=== PATIENT | male | born 1985 ===

== ENCOUNTER 2017-04-03 13:24 | Inpatient (IN) ==
[2017-04-03] MEDS ORDERED: DEXTROSE 50% 25 GM/50 ML VIAL IV PRN (13:25)
[2017-04-03] MEDS ORDERED: ONDANSETRON 4 MG/2 ML VIAL IV PRN (13:25)
[2017-04-03] MEDS ORDERED: GLUCAGON 1 MG VIAL IM PRN (13:25)
[2017-04-03] MEDS ORDERED: PIPERACILLIN/TAZOBACTAM 3,375 MG in SODIUM CHLORIDE 0.9% 100 ML IV SCH (13:30)
[2017-04-03] MEDS ORDERED: ACETAMINOPHEN 325 MG TABLET ONE (16:09)
[2017-04-03] MEDS ORDERED: ceFAZolin 2,000 MG in PREMIX 1 EACH IV ONE (16:19)
[2017-04-03] MEDS: ACETAMINOPHEN 325 MG TABLET PO PRN (16:20)
[2017-04-03] MEDS ORDERED: CHLORHEXIDINE 4% SOLN 118 ML BOTTLE TOP ONE (16:28)
[2017-04-03] MEDS: BACITRACIN OINT 0.9 GM PACK TOP SCH (18:03)
[2017-04-03] MEDS: SODIUM CHLORIDE 0.9% 1,000 ML IV SCH (18:03)
[2017-04-03] MEDS: PIPERACILLIN/TAZOBACTAM 3,375 MG in SODIUM CHLORIDE 0.9% 100 ML IV SCH (18:26)
[2017-04-03] MEDS ORDERED: INSULIN REGULAR 100 UNIT/ML ONE (18:29)
[2017-04-03] MEDS: INSULIN LISPRO 100 UNIT/ML SUBCUT SCH ×2 (18:33→21:19)
[2017-04-03] MEDS: HYDROmorphone 2 MG/1 ML VIAL IV PRN (19:18)
[2017-04-03] MEDS: GABAPENTIN 300 MG CAPSULE PO SCH (21:17)
[2017-04-03] MEDS: AMITRIPTYLINE 25 MG TABLET PO SCH (21:17)
[2017-04-03] MEDS: INSULIN GLARGINE 100 UNIT/ML SUBCUT SCH (21:20)
[2017-04-04] MEDS: PIPERACILLIN/TAZOBACTAM 3,375 MG in SODIUM CHLORIDE 0.9% 100 ML IV SCH ×3 (00:43→18:33)
[2017-04-04] MEDS ORDERED: ACETAMINOPHEN 325 MG TABLET ONE (00:49)
[2017-04-04] MEDS: ACETAMINOPHEN 325 MG TABLET PO PRN (00:50)
[2017-04-04 06:01] LABS: Basophils % 0.3 % (0.0-0.8); Eosinophils # 0.2 10*3/uL (0.0-0.87); Eosinophils % 1.6 % (0.00-10.9); Hematocrit 31.3 VOL% (42.0-52.0); Hemoglobin 10.9 GM/DL (14.0-18.0); Immature Granulocytes % 0.6 %; Immature Granulocytes Absolute 0.09 #; Lymphocytes # 1.4 10*3/uL (1.4-4.0); Lymphocytes % 9.9 % (21.2-54.2); Mean Corpuscular HGB Conc 34.8 GM/DL (32-36); Mean Corpuscular Hemoglobin 31 PG (27-34); Mean Corpuscular Volume 87.7 FL (87-102); Mean Platelet Volume 8.8 FL (9.6-12.0); Monocytes # 1.3 10*3/uL (0.11-0.8); Monocytes % 8.8 % (1.7-12.7); Neutrophils # 11.2 10*3/uL (1.4-7.4); Neutrophils % 78.8 % (38.7-73.9); Platelet Count 260 T/CUMM (130-400); Red Blood Count 3.57 MC/CUMM (3.8-5.5); Red Cell Distribution Width 12.1 % (9.3-17.3); White Blood Count 14.2 T/CUMM (4-12)
[2017-04-04 06:32] LABS: Albumin 2.2 G/DL (3.4-5.0); Bilirubin,Total 1.4 MG/DL (0.2-1.0); Calcium 7.6 MG/DL (8.5-10.1); Osmolality,Calculated 272.5 MOS/KG (273-304); Potassium 4.4 MMOL/L (3.5-5.1); Total Protein 5.8 G/DL (6.4-8.3)
[2017-04-04] MEDS ORDERED: DIAZEPAM 5 MG TABLET PO ONE (07:00)
[2017-04-04] MEDS ORDERED: ceFAZolin 2,000 MG in PREMIX 1 EACH IV ONE (07:00)
[2017-04-04] MEDS ORDERED: FAMOTIDINE 20 MG TABLET PO ONE (07:00)
[2017-04-04] MEDS ORDERED: BUPIVACAINE 0.25% 50 ML VIAL ONE (08:12)
[2017-04-04] MEDS: INSULIN LISPRO 100 UNIT/ML SUBCUT SCH ×4 (09:00→21:10)
[2017-04-04] MEDS ORDERED: GENTAMICIN 0.1% CREAM 15 GM TUBE TOP ONE (09:21)
[2017-04-04] MEDS ORDERED: ONDANSETRON 4 MG/2 ML VIAL IV PRN ×2 (09:50→10:07)
[2017-04-04] MEDS ORDERED: CLINDAMYCIN INJ 600 MG in PREMIX 1 EACH IV SCH (10:00)
[2017-04-04] MEDS ORDERED: metroNIDAZOLE INJ 500 MG in PREMIX 1 EACH IV SCH (10:00)
[2017-04-04] MEDS ORDERED: HYDROmorphone 2 MG/1 ML VIAL IV PRN (10:07)
[2017-04-04] MEDS ORDERED: PROPOFOL 200 MG/20 ML VIAL IV ONE (10:17)
[2017-04-04] MEDS ORDERED: SEVOFLURANE 1 UNIT/15 MINUTE INH ONE (10:18)
[2017-04-04] MEDS ORDERED: MIDAZOLAM 2 MG/2 ML VIAL ONE (10:18)
[2017-04-04] MEDS ORDERED: fentaNYL 100 MCG/2 ML VIAL ONE (10:18)
[2017-04-04] MEDS ORDERED: KETOROLAC 30 MG/1 ML VIAL ONE (10:19)
[2017-04-04] MEDS ORDERED: ONDANSETRON 4 MG/2 ML VIAL ONE (10:19)
[2017-04-04] MEDS ORDERED: LACTATED RINGERS 1,000 ML IV SCH (10:30)
[2017-04-04] MEDS: BACITRACIN OINT 0.9 GM PACK TOP SCH (11:25)
[2017-04-04] MEDS: glyBURIDE 5 MG TABLET PO SCH (11:26)
[2017-04-04] MEDS: GABAPENTIN 300 MG CAPSULE PO SCH ×3 (11:27→21:08)
[2017-04-04] MEDS: hydroCHLOROthiazide 12.5 MG CAPSULE PO SCH (11:27)
[2017-04-04] MEDS: PANTOPRAZOLE 40 MG TABLET PO SCH (11:28)
[2017-04-04] MEDS: PRAVASTATIN 20 MG TABLET PO SCH (11:28)
[2017-04-04] MEDS: MONTELUKAST 10 MG TABLET PO SCH (11:29)
[2017-04-04] MEDS: SODIUM CHLORIDE 0.9% 1,000 ML IV SCH ×4 (11:29→18:31)
[2017-04-04] MEDS: HYDROmorphone 2 MG/1 ML VIAL IV PRN ×3 (12:17→21:10)
[2017-04-04] MEDS: VANCOMYCIN INJ 1,000 MG in SODIUM CHLORIDE 0.9% 250 ML IV SCH ×2 (12:50→23:25)
[2017-04-04] MEDS: ceFAZolin 2,000 MG in PREMIX 1 EACH IV SCH (16:02)
[2017-04-04] MEDS: INSULIN GLARGINE 100 UNIT/ML SUBCUT SCH (21:09)
[2017-04-04] MEDS: AMITRIPTYLINE 25 MG TABLET PO SCH (21:09)
[2017-04-05] MEDS: HYDROmorphone 2 MG/1 ML VIAL IV PRN ×5 (00:51→21:25)
[2017-04-05] MEDS: ceFAZolin 2,000 MG in PREMIX 1 EACH IV SCH (01:29)
[2017-04-05] MEDS: SODIUM CHLORIDE 0.9% 1,000 ML IV SCH ×3 (01:40→18:28)
[2017-04-05] MEDS: PIPERACILLIN/TAZOBACTAM 3,375 MG in SODIUM CHLORIDE 0.9% 100 ML IV SCH ×3 (02:26→17:26)
[2017-04-05] MEDS: ENOXAPARIN 40 MG/0.4 ML SYRINGE SUBCUT SCH (05:02)
[2017-04-05 05:16] LABS: Basophils % 0.3 % (0.0-0.8); Eosinophils # 0.3 10*3/uL (0.0-0.87); Eosinophils % 3.1 % (0.00-10.9); Hematocrit 28.6 VOL% (42.0-52.0); Hemoglobin 9.9 GM/DL (14.0-18.0); Immature Granulocytes % 0.4 %; Immature Granulocytes Absolute 0.04 #; Lymphocytes # 1.9 10*3/uL (1.4-4.0); Lymphocytes % 17.3 % (21.2-54.2); Mean Corpuscular HGB Conc 34.6 GM/DL (32-36); Mean Corpuscular Hemoglobin 31 PG (27-34); Mean Platelet Volume 8.6 FL (9.6-12.0); Monocytes # 1.1 10*3/uL (0.11-0.8); Monocytes % 9.8 % (1.7-12.7); Neutrophils # 7.5 10*3/uL (1.4-7.4); Neutrophils % 69.1 % (38.7-73.9); Platelet Count 241 T/CUMM (130-400); Red Blood Count 3.25 MC/CUMM (3.8-5.5); White Blood Count 10.9 T/CUMM (4-12)
[2017-04-05 05:54] LABS: Bilirubin,Total 0.6 MG/DL (0.2-1.0); Calcium 7.5 MG/DL (8.5-10.1); Osmolality,Calculated 269.1 MOS/KG (273-304); Potassium 4.1 MMOL/L (3.5-5.1); Total Protein 5.5 G/DL (6.4-8.3)
[2017-04-05] MEDS: VANCOMYCIN INJ 1,000 MG in SODIUM CHLORIDE 0.9% 250 ML IV SCH ×3 (06:29→23:27)
[2017-04-05] MEDS: INSULIN LISPRO 100 UNIT/ML SUBCUT SCH ×4 (09:46→21:29)
[2017-04-05] MEDS: hydroCHLOROthiazide 12.5 MG CAPSULE PO SCH (09:47)
[2017-04-05] MEDS: MONTELUKAST 10 MG TABLET PO SCH (09:47)
[2017-04-05] MEDS: PANTOPRAZOLE 40 MG TABLET PO SCH (09:48)
[2017-04-05] MEDS: PRAVASTATIN 20 MG TABLET PO SCH (09:48)
[2017-04-05] MEDS: GABAPENTIN 300 MG CAPSULE PO SCH ×3 (09:48→21:27)
[2017-04-05] MEDS: glyBURIDE 5 MG TABLET PO SCH (09:52)
[2017-04-05] MEDS: BACITRACIN OINT 0.9 GM PACK TOP SCH (09:53)
[2017-04-05] MEDS ORDERED: ACETAMINOPHEN 325 MG TABLET PO PRN (14:42)
[2017-04-05] MEDS: INSULIN GLARGINE 100 UNIT/ML SUBCUT SCH (21:23)
[2017-04-05] MEDS: AMITRIPTYLINE 25 MG TABLET PO SCH (21:27)
[2017-04-06] MEDS: HYDROmorphone 2 MG/1 ML VIAL IV PRN ×6 (00:14→20:58)
[2017-04-06] MEDS: SODIUM CHLORIDE 0.9% 1,000 ML IV SCH ×3 (01:20→17:51)
[2017-04-06] MEDS: PIPERACILLIN/TAZOBACTAM 3,375 MG in SODIUM CHLORIDE 0.9% 100 ML IV SCH ×3 (02:05→17:43)
[2017-04-06 04:03] LABS: Basophils % 0.3 % (0.0-0.8); Eosinophils # 0.5 10*3/uL (0.0-0.87); Eosinophils % 5.4 % (0.00-10.9); Hematocrit 30.9 VOL% (42.0-52.0); Hemoglobin 10.7 GM/DL (14.0-18.0); Immature Granulocytes % 0.6 %; Immature Granulocytes Absolute 0.05 #; Lymphocytes % 22.5 % (21.2-54.2); Mean Corpuscular HGB Conc 34.6 GM/DL (32-36); Mean Corpuscular Hemoglobin 31 PG (27-34); Mean Corpuscular Volume 88.8 FL (87-102); Mean Platelet Volume 8.5 FL (9.6-12.0); Monocytes # 0.7 10*3/uL (0.11-0.8); Monocytes % 8.3 % (1.7-12.7); Neutrophils # 5.6 10*3/uL (1.4-7.4); Neutrophils % 62.9 % (38.7-73.9); Platelet Count 282 T/CUMM (130-400); Red Blood Count 3.48 MC/CUMM (3.8-5.5); Red Cell Distribution Width 12.2 % (9.3-17.3); White Blood Count 8.9 T/CUMM (4-12)
[2017-04-06 04:33] LABS: Calcium 7.9 MG/DL (8.5-10.1); Osmolality,Calculated 273.7 MOS/KG (273-304); Potassium 4.5 MMOL/L (3.5-5.1)
[2017-04-06] MEDS: ENOXAPARIN 40 MG/0.4 ML SYRINGE SUBCUT SCH (04:49)
[2017-04-06] MEDS: VANCOMYCIN INJ 1,000 MG in SODIUM CHLORIDE 0.9% 250 ML IV SCH ×3 (06:20→22:51)
[2017-04-06] MEDS: INSULIN LISPRO 100 UNIT/ML SUBCUT SCH ×4 (08:15→20:57)
[2017-04-06] MEDS: PRAVASTATIN 20 MG TABLET PO SCH (08:58)
[2017-04-06] MEDS: GABAPENTIN 300 MG CAPSULE PO SCH ×3 (08:58→20:56)
[2017-04-06] MEDS: PANTOPRAZOLE 40 MG TABLET PO SCH (08:58)
[2017-04-06] MEDS: BACITRACIN OINT 0.9 GM PACK TOP SCH (08:58)
[2017-04-06] MEDS: glyBURIDE 5 MG TABLET PO SCH (08:58)
[2017-04-06] MEDS: hydroCHLOROthiazide 12.5 MG CAPSULE PO SCH (08:58)
[2017-04-06] MEDS: MONTELUKAST 10 MG TABLET PO SCH (08:58)
[2017-04-06] MEDS: SODIUM HYPOCHLORITE 0.25% IRRIG 473 ML BOTTLE TOP SCH (13:36)
[2017-04-06] MEDS: GENTAMICIN 0.1% CREAM 15 GM TUBE TOP SCH (13:36)
[2017-04-06] MEDS: SKIN HEALING OINT (AQUAPHOR) 50 GM TUBE TOP PRN (13:41)
[2017-04-06] MEDS: AMITRIPTYLINE 25 MG TABLET PO SCH (20:56)
[2017-04-06] MEDS: INSULIN GLARGINE 100 UNIT/ML SUBCUT SCH (20:57)
[2017-04-07] MEDS: SODIUM CHLORIDE 0.9% 1,000 ML IV SCH ×3 (01:19→21:44)
[2017-04-07] MEDS: PIPERACILLIN/TAZOBACTAM 3,375 MG in SODIUM CHLORIDE 0.9% 100 ML IV SCH ×2 (01:55→14:15)
[2017-04-07] MEDS: ENOXAPARIN 40 MG/0.4 ML SYRINGE SUBCUT SCH (05:02)
[2017-04-07 05:24] LABS: Basophils % 0.4 % (0.0-0.8); Eosinophils # 0.5 10*3/uL (0.0-0.87); Eosinophils % 5.7 % (0.00-10.9); Hematocrit 32.2 VOL% (42.0-52.0); Immature Granulocytes % 0.3 %; Immature Granulocytes Absolute 0.03 #; Lymphocytes # 1.7 10*3/uL (1.4-4.0); Lymphocytes % 18.6 % (21.2-54.2); Mean Corpuscular HGB Conc 34.2 GM/DL (32-36); Mean Corpuscular Hemoglobin 30 PG (27-34); Mean Corpuscular Volume 88.5 FL (87-102); Mean Platelet Volume 8.4 FL (9.6-12.0); Monocytes # 0.9 10*3/uL (0.11-0.8); Monocytes % 10.1 % (1.7-12.7); Neutrophils # 6.1 10*3/uL (1.4-7.4); Neutrophils % 64.9 % (38.7-73.9); Platelet Count 294 T/CUMM (130-400); Red Blood Count 3.64 MC/CUMM (3.8-5.5); Red Cell Distribution Width 11.9 % (9.3-17.3); White Blood Count 9.3 T/CUMM (4-12)
[2017-04-07] MEDS: HYDROmorphone 2 MG/1 ML VIAL IV PRN ×3 (05:36→18:17)
[2017-04-07 05:51] LABS: Calcium 8.3 MG/DL (8.5-10.1); Osmolality,Calculated 273.8 MOS/KG (273-304); Potassium 4.6 MMOL/L (3.5-5.1)
[2017-04-07] MEDS: VANCOMYCIN INJ 1,000 MG in SODIUM CHLORIDE 0.9% 250 ML IV SCH ×3 (06:18→21:35)
[2017-04-07 06:39] LABS: Eosinophils 6 % (0-10); Lymphocytes 14 % (20-55); Segmented Neutrophils 71 % (50-85); Total Cells Counted 100
[2017-04-07 06:40] LABS: Hypochromasia 1+; Microcytosis 1+
[2017-04-07 06:41] LABS: Platelet Estimate Normal
[2017-04-07] MEDS: INSULIN LISPRO 100 UNIT/ML SUBCUT SCH ×4 (08:37→21:20)
[2017-04-07] MEDS: CIPROFLOXACIN 500 MG TABLET PO SCH ×2 (08:38→21:19)
[2017-04-07] MEDS: glyBURIDE 5 MG TABLET PO SCH (08:39)
[2017-04-07] MEDS: GABAPENTIN 300 MG CAPSULE PO SCH ×3 (08:39→21:19)
[2017-04-07] MEDS: PANTOPRAZOLE 40 MG TABLET PO SCH (08:39)
[2017-04-07] MEDS: MONTELUKAST 10 MG TABLET PO SCH (08:39)
[2017-04-07] MEDS: PRAVASTATIN 20 MG TABLET PO SCH (08:39)
[2017-04-07] MEDS: hydroCHLOROthiazide 12.5 MG CAPSULE PO SCH (08:39)
[2017-04-07] MEDS ORDERED: GENTAMICIN 0.1% CREAM 15 GM TUBE TOP SCH (09:00)
[2017-04-07] MEDS: GENTAMICIN 0.1% CREAM 15 GM TUBE TOP SCH (11:48)
[2017-04-07] MEDS: SKIN HEALING OINT (AQUAPHOR) 50 GM TUBE TOP PRN (11:48)
[2017-04-07] MEDS: SODIUM HYPOCHLORITE 0.25% IRRIG 473 ML BOTTLE TOP SCH (11:48)
[2017-04-07] MEDS: INSULIN GLARGINE 100 UNIT/ML SUBCUT SCH ×2 (21:19→21:22)
[2017-04-07] MEDS: AMITRIPTYLINE 25 MG TABLET PO SCH (21:19)
[2017-04-08] MEDS: PIPERACILLIN/TAZOBACTAM 3,375 MG in SODIUM CHLORIDE 0.9% 100 ML IV SCH ×3 (00:01→16:11)
[2017-04-08] MEDS: SODIUM CHLORIDE 0.9% 1,000 ML IV SCH ×3 (02:30→18:47)
[2017-04-08] MEDS: ENOXAPARIN 40 MG/0.4 ML SYRINGE SUBCUT SCH (03:25)
[2017-04-08] MEDS: VANCOMYCIN INJ 1,000 MG in SODIUM CHLORIDE 0.9% 250 ML IV SCH ×2 (05:34→13:46)
[2017-04-08] MEDS: INSULIN LISPRO 100 UNIT/ML SUBCUT SCH ×4 (08:53→21:07)
[2017-04-08] MEDS: hydroCHLOROthiazide 12.5 MG CAPSULE PO SCH (08:53)
[2017-04-08] MEDS: MONTELUKAST 10 MG TABLET PO SCH (08:53)
[2017-04-08] MEDS: PRAVASTATIN 20 MG TABLET PO SCH (08:53)
[2017-04-08] MEDS: PANTOPRAZOLE 40 MG TABLET PO SCH (08:54)
[2017-04-08] MEDS: CIPROFLOXACIN 500 MG TABLET PO SCH (08:54)
[2017-04-08] MEDS: glyBURIDE 5 MG TABLET PO SCH (08:54)
[2017-04-08] MEDS: GABAPENTIN 300 MG CAPSULE PO SCH ×3 (08:54→21:06)
[2017-04-08] MEDS: HYDROmorphone 2 MG/1 ML VIAL IV PRN ×3 (08:59→21:07)
[2017-04-08] MEDS: SODIUM HYPOCHLORITE 0.25% IRRIG 473 ML BOTTLE TOP SCH (09:00)
[2017-04-08] MEDS: GENTAMICIN 0.1% CREAM 15 GM TUBE TOP SCH (09:00)
[2017-04-08 09:25] LABS: Basophils % 0.3 % (0.0-0.8); Eosinophils # 0.4 10*3/uL (0.0-0.87); Eosinophils % 4.2 % (0.00-10.9); Hematocrit 37.7 VOL% (42.0-52.0); Hemoglobin 12.6 GM/DL (14.0-18.0); Immature Granulocytes % 0.7 %; Immature Granulocytes Absolute 0.07 #; Lymphocytes # 1.4 10*3/uL (1.4-4.0); Lymphocytes % 14.5 % (21.2-54.2); Mean Corpuscular HGB Conc 33.4 GM/DL (32-36); Mean Corpuscular Hemoglobin 30 PG (27-34); Mean Corpuscular Volume 90.6 FL (87-102); Mean Platelet Volume 8.3 FL (9.6-12.0); Monocytes # 0.6 10*3/uL (0.11-0.8); Monocytes % 6.5 % (1.7-12.7); Neutrophils # 7.2 10*3/uL (1.4-7.4); Neutrophils % 73.8 % (38.7-73.9); Platelet Count 324 T/CUMM (130-400); Red Blood Count 4.16 MC/CUMM (3.8-5.5); Red Cell Distribution Width 12.1 % (9.3-17.3); White Blood Count 9.8 T/CUMM (4-12)
[2017-04-08 09:56] LABS: Alanine Aminotransferase 31 U/L (16-61); Albumin 2.5 G/DL (3.4-5.0); Alkaline Phosphatase 185 U/L (45-117); Aspartate Amino Transferase 25 U/L (0-37); Bilirubin,Total < 0.39 MG/DL (0.2-1.0); Blood Urea Nitrogen 16 MG/DL (7-18); Calcium 8.5 MG/DL (8.5-10.1); Glucose 217 MG/DL (74-106); Osmolality,Calculated 282.7 MOS/KG (273-304); Potassium 4.5 MMOL/L (3.5-5.1); Sodium 138 MMOL/L (136-145); Total Protein 6.7 G/DL (6.4-8.3)
[2017-04-08] MEDS: AMITRIPTYLINE 25 MG TABLET PO SCH (21:07)
[2017-04-08] MEDS: INSULIN GLARGINE 100 UNIT/ML SUBCUT SCH (21:07)
[2017-04-08] MEDS: AMPICILLIN/SULBACTAM 3,000 MG in SODIUM CHLORIDE 0.9% 100 ML IV SCH (23:00)
[2017-04-09] MEDS: ENOXAPARIN 40 MG/0.4 ML SYRINGE SUBCUT SCH (03:12)
[2017-04-09] MEDS: AMPICILLIN/SULBACTAM 3,000 MG in SODIUM CHLORIDE 0.9% 100 ML IV SCH ×4 (05:43→23:59)
[2017-04-09] MEDS: SODIUM CHLORIDE 0.9% 1,000 ML IV SCH ×5 (07:37→22:18)
[2017-04-09] MEDS: INSULIN LISPRO 100 UNIT/ML SUBCUT SCH ×4 (07:49→21:19)
[2017-04-09] MEDS: glyBURIDE 5 MG TABLET PO SCH (08:15)
[2017-04-09] MEDS: hydroCHLOROthiazide 12.5 MG CAPSULE PO SCH (08:15)
[2017-04-09] MEDS: GABAPENTIN 300 MG CAPSULE PO SCH ×3 (08:15→21:18)
[2017-04-09] MEDS: GENTAMICIN 0.1% CREAM 15 GM TUBE TOP SCH (08:15)
[2017-04-09] MEDS: SODIUM HYPOCHLORITE 0.25% IRRIG 473 ML BOTTLE TOP SCH (08:15)
[2017-04-09] MEDS: PANTOPRAZOLE 40 MG TABLET PO SCH (08:16)
[2017-04-09] MEDS: MONTELUKAST 10 MG TABLET PO SCH (08:16)
[2017-04-09] MEDS: PRAVASTATIN 20 MG TABLET PO SCH (08:16)
[2017-04-09] MEDS ORDERED: BUPIVACAINE 0.25% 50 ML VIAL ONE (10:54)
[2017-04-09] MEDS: LACTATED RINGERS 1,000 ML IV SCH ×2 (11:10→13:24)
[2017-04-09] MEDS ORDERED: GENTAMICIN 0.1% CREAM 15 GM TUBE TOP ONE (11:13)
[2017-04-09] MEDS ORDERED: AMPICILLIN/SULBACTAM 3,000 MG VIAL ONE (11:32)
[2017-04-09] MEDS ORDERED: fentaNYL 100 MCG/2 ML VIAL ONE (12:36)
[2017-04-09] MEDS ORDERED: PROPOFOL 200 MG/20 ML VIAL IV ONE (12:36)
[2017-04-09] MEDS ORDERED: LACTATED RINGERS 1,000 ML IV ONE (12:36)
[2017-04-09] MEDS ORDERED: MIDAZOLAM 2 MG/2 ML VIAL ONE (12:36)
[2017-04-09] MEDS ORDERED: SEVOFLURANE 1 UNIT/15 MINUTE INH ONE (12:36)
[2017-04-09] MEDS ORDERED: ONDANSETRON 4 MG/2 ML VIAL IV PRN (13:00)
[2017-04-09] MEDS: HYDROmorphone 2 MG/1 ML VIAL IV PRN ×4 (13:00→23:58)
[2017-04-09] MEDS ORDERED: HYDROmorphone 2 MG/1 ML VIAL ONE (13:02)
[2017-04-09] MEDS ORDERED: ONDANSETRON 4 MG/2 ML VIAL ONE (13:02)
[2017-04-09] MEDS: INSULIN GLARGINE 100 UNIT/ML SUBCUT SCH (21:19)
[2017-04-09] MEDS: AMITRIPTYLINE 25 MG TABLET PO SCH (21:19)
[2017-04-10] MEDS: AMPICILLIN/SULBACTAM 3,000 MG in SODIUM CHLORIDE 0.9% 100 ML IV SCH ×4 (04:53→22:18)
[2017-04-10] MEDS: ENOXAPARIN 40 MG/0.4 ML SYRINGE SUBCUT SCH (04:53)
[2017-04-10 05:33] LABS: Basophils % 0.5 % (0.0-0.8); Eosinophils # 0.4 10*3/uL (0.0-0.87); Eosinophils % 4.1 % (0.00-10.9); Hematocrit 31.9 VOL% (42.0-52.0); Hemoglobin 10.9 GM/DL (14.0-18.0); Immature Granulocytes % 0.5 %; Immature Granulocytes Absolute 0.04 #; Lymphocytes % 23.4 % (21.2-54.2); Mean Corpuscular HGB Conc 34.2 GM/DL (32-36); Mean Corpuscular Hemoglobin 30 PG (27-34); Mean Corpuscular Volume 88.9 FL (87-102); Mean Platelet Volume 8.3 FL (9.6-12.0); Monocytes # 0.9 10*3/uL (0.11-0.8); Monocytes % 10.5 % (1.7-12.7); Neutrophils # 5.3 10*3/uL (1.4-7.4); Platelet Count 303 T/CUMM (130-400); Red Blood Count 3.59 MC/CUMM (3.8-5.5); Red Cell Distribution Width 12.1 % (9.3-17.3); White Blood Count 8.7 T/CUMM (4-12)
[2017-04-10 06:07] LABS: Calcium 8.2 MG/DL (8.5-10.1); Osmolality,Calculated 277.5 MOS/KG (273-304); Potassium 4.4 MMOL/L (3.5-5.1)
[2017-04-10] MEDS: INSULIN LISPRO 100 UNIT/ML SUBCUT SCH ×4 (07:22→20:54)
[2017-04-10] MEDS: SODIUM CHLORIDE 0.9% 1,000 ML IV SCH ×4 (07:22→22:15)
[2017-04-10] MEDS: PANTOPRAZOLE 40 MG TABLET PO SCH (08:22)
[2017-04-10] MEDS: GABAPENTIN 300 MG CAPSULE PO SCH ×3 (08:22→20:54)
[2017-04-10] MEDS: glyBURIDE 5 MG TABLET PO SCH (08:22)
[2017-04-10] MEDS: PRAVASTATIN 20 MG TABLET PO SCH (08:22)
[2017-04-10] MEDS: MONTELUKAST 10 MG TABLET PO SCH (08:22)
[2017-04-10] MEDS: hydroCHLOROthiazide 12.5 MG CAPSULE PO SCH (08:22)
[2017-04-10] MEDS: SODIUM HYPOCHLORITE 0.25% IRRIG 473 ML BOTTLE TOP SCH (08:55)
[2017-04-10] MEDS: GENTAMICIN 0.1% CREAM 15 GM TUBE TOP SCH (08:56)
[2017-04-10] MEDS ORDERED: CHOLECALCIFEROL 5,000 UNIT TABLET PO SCH (09:00)
[2017-04-10] MEDS: HYDROmorphone 2 MG/1 ML VIAL IV PRN ×4 (09:40→22:14)
[2017-04-10] MEDS: INSULIN GLARGINE 100 UNIT/ML SUBCUT SCH (20:54)
[2017-04-10] MEDS: AMITRIPTYLINE 25 MG TABLET PO SCH (20:54)
[2017-04-11] MEDS: ENOXAPARIN 40 MG/0.4 ML SYRINGE SUBCUT SCH (04:54)
[2017-04-11] MEDS: AMPICILLIN/SULBACTAM 3,000 MG in SODIUM CHLORIDE 0.9% 100 ML IV SCH ×2 (04:54→11:47)
[2017-04-11] MEDS: INSULIN LISPRO 100 UNIT/ML SUBCUT SCH ×2 (08:50→11:47)
[2017-04-11] MEDS: hydroCHLOROthiazide 12.5 MG CAPSULE PO SCH (08:52)
[2017-04-11] MEDS: glyBURIDE 5 MG TABLET PO SCH (08:52)
[2017-04-11] MEDS: PRAVASTATIN 20 MG TABLET PO SCH (08:52)
[2017-04-11] MEDS: GABAPENTIN 300 MG CAPSULE PO SCH ×2 (08:52→15:10)
[2017-04-11] MEDS: PANTOPRAZOLE 40 MG TABLET PO SCH (08:53)
[2017-04-11] MEDS: MONTELUKAST 10 MG TABLET PO SCH (08:53)
[2017-04-11] MEDS: SKIN HEALING OINT (AQUAPHOR) 50 GM TUBE TOP PRN (10:15)
[2017-04-11] MEDS: SODIUM HYPOCHLORITE 0.25% IRRIG 473 ML BOTTLE TOP SCH (10:15)
[2017-04-11] MEDS: GENTAMICIN 0.1% CREAM 15 GM TUBE TOP SCH (10:15)
[2017-04-11 11:06] VITALS: BP 139/87
== END 2017-04-11 15:17 | disposition home or self-care (01) | DRG 623 ==
LOC: N.3E
PROVIDERS: ADMIT Specialist; ATTEND Specialist

== ENCOUNTER 2017-07-30 05:57 | Inpatient (IN) ==
[2017-07-28 15:41] LABS: Basophils % 0.7 % (0.0-0.8); Eosinophils # 0.4 10*3/uL (0.0-0.87); Eosinophils % 7.5 % (0.00-10.9); Hematocrit 34.2 VOL% (42.0-52.0); Hemoglobin 11.9 GM/DL (14.0-18.0); Immature Granulocytes % 0.2 %; Immature Granulocytes Absolute 0.01 #; Lymphocytes # 1.4 10*3/uL (1.4-4.0); Lymphocytes % 25.8 % (21.2-54.2); Mean Corpuscular HGB Conc 34.8 GM/DL (32-36); Mean Corpuscular Hemoglobin 31 PG (27-34); Mean Corpuscular Volume 88.1 FL (87-102); Monocytes # 0.4 10*3/uL (0.11-0.8); Monocytes % 7.2 % (1.7-12.7); Neutrophils # 3.3 10*3/uL (1.4-7.4); Neutrophils % 58.6 % (38.7-73.9); Platelet Count 180 T/CUMM (130-400); Red Blood Count 3.88 MC/CUMM (3.8-5.5); Red Cell Distribution Width 13.9 % (9.3-17.3); White Blood Count 5.6 T/CUMM (4-12)
[2017-07-28 16:20] LABS: Albumin 3.4 G/DL (3.4-5.0); Bilirubin,Total 0.4 MG/DL (0.2-1.0); Calcium 8.6 MG/DL (8.5-10.1); Osmolality,Calculated 292.5 MOS/KG (273-304); Potassium 4.8 MMOL/L (3.5-5.1); Total Protein 6.8 G/DL (6.4-8.3)
[~2017-07-30 05:57] MED LIST: ceFAZolin 1,000 MG VIAL ONE
[2017-07-30] MEDS ORDERED: ceFAZolin 1,000 MG in SYRINGE 1 EACH IV ONE (06:00)
[2017-07-30] MEDS ORDERED: LACTATED RINGERS 1,000 ML IV SCH (06:30)
[2017-07-30] MEDS ORDERED: LIDOCAINE 1% 50 ML VIAL ONE (06:38)
[2017-07-30] MEDS ORDERED: GLUCAGON 1 MG VIAL IM PRN (08:10)
[2017-07-30] MEDS ORDERED: ACETAMINOPHEN 325 MG TABLET PO PRN (08:10)
[2017-07-30] MEDS ORDERED: ONDANSETRON 4 MG/2 ML VIAL IV PRN (08:10)
[2017-07-30] MEDS ORDERED: DEXTROSE 50% 25 GM/50 ML VIAL IV PRN (08:10)
[2017-07-30] MEDS ORDERED: LACTATED RINGERS 1,000 ML IV ONE (08:38)
[2017-07-30] MEDS ORDERED: SODIUM CHLORIDE 0.9% 100 ML IV ONE (08:38)
[2017-07-30] MEDS ORDERED: PHENYLEPHRINE 10 MG/1 ML VIAL IV ONE (08:38)
[2017-07-30] MEDS ORDERED: fentaNYL 100 MCG/2 ML VIAL ONE (08:38)
[2017-07-30] MEDS ORDERED: MIDAZOLAM 2 MG/2 ML VIAL ONE (08:38)
[2017-07-30] MEDS ORDERED: PROPOFOL 200 MG/20 ML VIAL IV ONE (08:38)
[2017-07-30] MEDS: CIPROFLOXACIN INJ 400 MG in PREMIX 1 EACH IV SCH ×2 (11:08→20:50)
[2017-07-30] MEDS: HYDROmorphone 2 MG/1 ML VIAL IV PRN ×2 (11:31→20:05)
[2017-07-30] MEDS: SODIUM CHLORIDE 0.9% 1,000 ML IV SCH ×2 (11:32→18:52)
[2017-07-30] MEDS: INSULIN REGULAR 100 UNIT/ML SUBCUT SCH ×3 (12:39→20:49)
[2017-07-30] MEDS: GABAPENTIN 300 MG CAPSULE PO SCH ×3 (13:38→20:04)
[2017-07-30] MEDS: KETOROLAC 15 MG/1 ML VIAL IV SCH ×3 (13:39→22:26)
[2017-07-30] MEDS: VANCOMYCIN INJ 1,000 MG in SODIUM CHLORIDE 0.9% 250 ML IV SCH ×2 (14:01→19:18)
[2017-07-30] MEDS: CHOLECALCIFEROL 5,000 UNIT TABLET PO SCH (14:02)
[2017-07-30] MEDS: PRAVASTATIN 20 MG TABLET PO SCH (14:02)
[2017-07-30] MEDS: hydroCHLOROthiazide 12.5 MG CAPSULE PO SCH (14:02)
[2017-07-30] MEDS: PANTOPRAZOLE 40 MG TABLET PO SCH (14:02)
[2017-07-30] MEDS: MONTELUKAST 10 MG TABLET PO SCH (14:02)
[2017-07-30] MEDS: glyBURIDE 5 MG TABLET PO SCH (14:02)
[2017-07-30] MEDS: ceFAZolin 2,000 MG in PREMIX 1 EACH IV SCH ×2 (16:42→22:27)
[2017-07-30] MEDS: INSULIN GLARGINE 100 UNIT/ML SUBCUT SCH (20:49)
[2017-07-31] MEDS: HYDROmorphone 2 MG/1 ML VIAL IV PRN ×3 (03:14→21:36)
[2017-07-31] MEDS: KETOROLAC 15 MG/1 ML VIAL IV SCH ×4 (03:15→21:36)
[2017-07-31] MEDS: VANCOMYCIN INJ 1,000 MG in SODIUM CHLORIDE 0.9% 250 ML IV SCH (03:15)
[2017-07-31] MEDS: ENOXAPARIN 40 MG/0.4 ML SYRINGE SUBCUT SCH (05:07)
[2017-07-31 05:47] LABS: Basophils # 0.1 10*3/uL (0.0-0.2); Basophils % 0.8 % (0.0-0.8); Eosinophils # 0.7 10*3/uL (0.0-0.87); Eosinophils % 8.6 % (0.00-10.9); Hematocrit 33.3 VOL% (42.0-52.0); Hemoglobin 11.5 GM/DL (14.0-18.0); Immature Granulocytes % 0.4 %; Immature Granulocytes Absolute 0.03 #; Lymphocytes # 2.2 10*3/uL (1.4-4.0); Lymphocytes % 27.7 % (21.2-54.2); Mean Corpuscular HGB Conc 34.5 GM/DL (32-36); Mean Corpuscular Hemoglobin 31 PG (27-34); Mean Corpuscular Volume 88.3 FL (87-102); Mean Platelet Volume 10.1 FL (9.6-12.0); Monocytes # 0.7 10*3/uL (0.11-0.8); Monocytes % 8.6 % (1.7-12.7); Neutrophils # 4.2 10*3/uL (1.4-7.4); Neutrophils % 53.9 % (38.7-73.9); Platelet Count 175 T/CUMM (130-400); Red Blood Count 3.77 MC/CUMM (3.8-5.5); Red Cell Distribution Width 13.6 % (9.3-17.3); White Blood Count 7.8 T/CUMM (4-12)
[2017-07-31 06:08] LABS: Osmolality,Calculated 279.5 MOS/KG (273-304); Potassium 4.2 MMOL/L (3.5-5.1)
[2017-07-31] MEDS: INSULIN REGULAR 100 UNIT/ML SUBCUT SCH ×4 (08:17→20:55)
[2017-07-31] MEDS: SODIUM CHLORIDE 0.9% 1,000 ML IV SCH ×3 (08:17→18:15)
[2017-07-31] MEDS: PRAVASTATIN 20 MG TABLET PO SCH (08:18)
[2017-07-31] MEDS: PANTOPRAZOLE 40 MG TABLET PO SCH (08:18)
[2017-07-31] MEDS: glyBURIDE 5 MG TABLET PO SCH (08:18)
[2017-07-31] MEDS: GABAPENTIN 300 MG CAPSULE PO SCH ×3 (08:18→20:53)
[2017-07-31] MEDS: MONTELUKAST 10 MG TABLET PO SCH (08:18)
[2017-07-31] MEDS: hydroCHLOROthiazide 12.5 MG CAPSULE PO SCH (08:18)
[2017-07-31] MEDS: CIPROFLOXACIN INJ 400 MG in PREMIX 1 EACH IV SCH ×2 (08:19→20:53)
[2017-07-31] MEDS ORDERED: VANCOMYCIN INJ 1,750 MG in SODIUM CHLORIDE 0.9% 500 ML IV ONE (12:59)
[2017-07-31] MEDS: INSULIN GLARGINE 100 UNIT/ML SUBCUT SCH (20:55)
[2017-07-31] MEDS: VANCOMYCIN INJ 1,250 MG in SODIUM CHLORIDE 0.9% 250 ML IV SCH (23:37)
[2017-08-01] MEDS: HYDROmorphone 2 MG/1 ML VIAL IV PRN ×2 (03:14→15:57)
[2017-08-01] MEDS: KETOROLAC 15 MG/1 ML VIAL IV SCH ×4 (03:14→21:53)
[2017-08-01] MEDS: SODIUM CHLORIDE 0.9% 1,000 ML IV SCH ×3 (03:16→21:55)
[2017-08-01] MEDS: ENOXAPARIN 40 MG/0.4 ML SYRINGE SUBCUT SCH (05:52)
[2017-08-01] MEDS: VANCOMYCIN INJ 1,250 MG in SODIUM CHLORIDE 0.9% 250 ML IV SCH ×3 (06:03→23:51)
[2017-08-01] MEDS: INSULIN REGULAR 100 UNIT/ML SUBCUT SCH ×4 (09:15→21:58)
[2017-08-01] MEDS: PRAVASTATIN 20 MG TABLET PO SCH (09:20)
[2017-08-01] MEDS: PANTOPRAZOLE 40 MG TABLET PO SCH (09:20)
[2017-08-01] MEDS: GABAPENTIN 300 MG CAPSULE PO SCH ×3 (09:20→21:53)
[2017-08-01] MEDS: hydroCHLOROthiazide 12.5 MG CAPSULE PO SCH (09:20)
[2017-08-01] MEDS: glyBURIDE 5 MG TABLET PO SCH (09:20)
[2017-08-01] MEDS: MONTELUKAST 10 MG TABLET PO SCH (09:20)
[2017-08-01] MEDS: CIPROFLOXACIN INJ 400 MG in PREMIX 1 EACH IV SCH ×2 (09:25→20:03)
[2017-08-01] MEDS ORDERED: SKIN HEALING OINT (AQUAPHOR) 50 GM TUBE TOP PRN (11:50)
[2017-08-01] MEDS: SODIUM HYPOCHLORITE 0.25% IRRIG 473 ML BOTTLE TOP SCH (14:13)
[2017-08-01] MEDS: INSULIN GLARGINE 100 UNIT/ML SUBCUT SCH (21:54)
[2017-08-02 04:52] LABS: Basophils # 0.1 10*3/uL (0.0-0.2); Basophils % 0.9 % (0.0-0.8); Eosinophils # 0.5 10*3/uL (0.0-0.87); Hematocrit 31.3 VOL% (42.0-52.0); Hemoglobin 11.1 GM/DL (14.0-18.0); Immature Granulocytes % 0.3 %; Immature Granulocytes Absolute 0.02 #; Lymphocytes # 1.8 10*3/uL (1.4-4.0); Lymphocytes % 31.7 % (21.2-54.2); Mean Corpuscular HGB Conc 35.5 GM/DL (32-36); Mean Corpuscular Hemoglobin 31 PG (27-34); Mean Corpuscular Volume 86.5 FL (87-102); Mean Platelet Volume 9.9 FL (9.6-12.0); Monocytes # 0.5 10*3/uL (0.11-0.8); Monocytes % 8.4 % (1.7-12.7); Neutrophils # 2.9 10*3/uL (1.4-7.4); Neutrophils % 49.7 % (38.7-73.9); Platelet Count 172 T/CUMM (130-400); Red Blood Count 3.62 MC/CUMM (3.8-5.5); Red Cell Distribution Width 13.3 % (9.3-17.3); White Blood Count 5.8 T/CUMM (4-12)
[2017-08-02] MEDS: KETOROLAC 15 MG/1 ML VIAL IV SCH (05:06)
[2017-08-02 05:26] LABS: Osmolality,Calculated 280.1 MOS/KG (273-304); Potassium 3.5 MMOL/L (3.5-5.1)
[2017-08-02] MEDS: ENOXAPARIN 40 MG/0.4 ML SYRINGE SUBCUT SCH (06:27)
[2017-08-02] MEDS: INSULIN REGULAR 100 UNIT/ML SUBCUT SCH ×4 (08:46→20:50)
[2017-08-02] MEDS: hydroCHLOROthiazide 12.5 MG CAPSULE PO SCH (09:25)
[2017-08-02] MEDS: glyBURIDE 5 MG TABLET PO SCH (09:25)
[2017-08-02] MEDS: MONTELUKAST 10 MG TABLET PO SCH (09:26)
[2017-08-02] MEDS: GABAPENTIN 300 MG CAPSULE PO SCH ×3 (09:26→20:51)
[2017-08-02] MEDS: PANTOPRAZOLE 40 MG TABLET PO SCH (09:26)
[2017-08-02] MEDS: PRAVASTATIN 20 MG TABLET PO SCH (09:26)
[2017-08-02] MEDS: VANCOMYCIN INJ 1,250 MG in SODIUM CHLORIDE 0.9% 250 ML IV SCH ×3 (09:27→23:03)
[2017-08-02] MEDS: HYDROmorphone 2 MG/1 ML VIAL IV PRN ×3 (09:49→23:01)
[2017-08-02] MEDS: SODIUM HYPOCHLORITE 0.25% IRRIG 473 ML BOTTLE TOP SCH (09:51)
[2017-08-02] MEDS: CIPROFLOXACIN INJ 400 MG in PREMIX 1 EACH IV SCH ×2 (12:38→20:52)
[2017-08-02] MEDS: INSULIN GLARGINE 100 UNIT/ML SUBCUT SCH (20:51)
[2017-08-02] MEDS: SODIUM CHLORIDE 0.9% 1,000 ML IV SCH ×3 (21:08→21:09)
[2017-08-03] MEDS: ENOXAPARIN 40 MG/0.4 ML SYRINGE SUBCUT SCH (05:27)
[2017-08-03] MEDS: SODIUM CHLORIDE 0.9% 1,000 ML IV SCH (06:34)
[2017-08-03] MEDS: INSULIN REGULAR 100 UNIT/ML SUBCUT SCH ×4 (09:51→21:46)
[2017-08-03] MEDS: GABAPENTIN 300 MG CAPSULE PO SCH ×3 (09:54→21:47)
[2017-08-03] MEDS: PANTOPRAZOLE 40 MG TABLET PO SCH (09:54)
[2017-08-03] MEDS: hydroCHLOROthiazide 12.5 MG CAPSULE PO SCH (09:54)
[2017-08-03] MEDS: glyBURIDE 5 MG TABLET PO SCH (09:54)
[2017-08-03] MEDS: CIPROFLOXACIN INJ 400 MG in PREMIX 1 EACH IV SCH ×2 (09:55→20:04)
[2017-08-03] MEDS: PRAVASTATIN 20 MG TABLET PO SCH (09:55)
[2017-08-03] MEDS: HYDROmorphone 2 MG/1 ML VIAL IV PRN ×2 (11:52→17:33)
[2017-08-03] MEDS: VANCOMYCIN INJ 1,250 MG in SODIUM CHLORIDE 0.9% 250 ML IV SCH ×2 (11:56→22:47)
[2017-08-03] MEDS: MONTELUKAST 10 MG TABLET PO SCH (13:30)
[2017-08-03] MEDS: SODIUM HYPOCHLORITE 0.25% IRRIG 473 ML BOTTLE TOP SCH (13:30)
[2017-08-03] MEDS: INSULIN GLARGINE 100 UNIT/ML SUBCUT SCH (21:46)
[2017-08-04] MEDS: HYDROmorphone 2 MG/1 ML VIAL IV PRN ×3 (00:54→18:25)
[2017-08-04] MEDS: SODIUM CHLORIDE 0.9% 1,000 ML IV SCH (02:52)
[2017-08-04 04:50] LABS: Basophils # 0.1 10*3/uL (0.0-0.2); Basophils % 0.7 % (0.0-0.8); Eosinophils # 0.6 10*3/uL (0.0-0.87); Eosinophils % 6.1 % (0.00-10.9); Hematocrit 35.7 VOL% (42.0-52.0); Hemoglobin 12.2 GM/DL (14.0-18.0); Immature Granulocytes % 0.2 %; Immature Granulocytes Absolute 0.02 #; Lymphocytes # 1.7 10*3/uL (1.4-4.0); Lymphocytes % 18.8 % (21.2-54.2); Mean Corpuscular HGB Conc 34.2 GM/DL (32-36); Mean Corpuscular Hemoglobin 31 PG (27-34); Mean Corpuscular Volume 89.3 FL (87-102); Mean Platelet Volume 9.5 FL (9.6-12.0); Monocytes # 0.8 10*3/uL (0.11-0.8); Monocytes % 8.4 % (1.7-12.7); Neutrophils # 5.9 10*3/uL (1.4-7.4); Neutrophils % 65.8 % (38.7-73.9); Platelet Count 190 T/CUMM (130-400); Red Cell Distribution Width 13.8 % (9.3-17.3)
[2017-08-04] MEDS: ENOXAPARIN 40 MG/0.4 ML SYRINGE SUBCUT SCH (05:14)
[2017-08-04 05:15] LABS: Calcium 8.2 MG/DL (8.5-10.1); Osmolality,Calculated 279.3 MOS/KG (273-304); Potassium 3.6 MMOL/L (3.5-5.1)
[2017-08-04] MEDS: INSULIN REGULAR 100 UNIT/ML SUBCUT SCH ×4 (07:23→21:05)
[2017-08-04] MEDS: CIPROFLOXACIN INJ 400 MG in PREMIX 1 EACH IV SCH (08:58)
[2017-08-04] MEDS: glyBURIDE 5 MG TABLET PO SCH (08:58)
[2017-08-04] MEDS: MONTELUKAST 10 MG TABLET PO SCH (08:59)
[2017-08-04] MEDS: hydroCHLOROthiazide 12.5 MG CAPSULE PO SCH (08:59)
[2017-08-04] MEDS: PRAVASTATIN 20 MG TABLET PO SCH (08:59)
[2017-08-04] MEDS: GABAPENTIN 300 MG CAPSULE PO SCH ×3 (08:59→21:04)
[2017-08-04] MEDS: PANTOPRAZOLE 40 MG TABLET PO SCH (08:59)
[2017-08-04] MEDS: SODIUM HYPOCHLORITE 0.25% IRRIG 473 ML BOTTLE TOP SCH (10:54)
[2017-08-04] MEDS ORDERED: VANCOMYCIN INJ 1,750 MG in SODIUM CHLORIDE 0.9% 500 ML IV ONE (13:00)
[2017-08-04] MEDS: INSULIN GLARGINE 100 UNIT/ML SUBCUT SCH (21:04)
[2017-08-05] MEDS: HYDROmorphone 2 MG/1 ML VIAL IV PRN ×5 (01:15→20:27)
[2017-08-05] MEDS ORDERED: VANCOMYCIN INJ 1,500 MG in SODIUM CHLORIDE 0.9% 500 ML IV SCH (02:00)
[2017-08-05] MEDS: SODIUM CHLORIDE 0.9% 1,000 ML IV SCH ×3 (03:01→23:06)
[2017-08-05] MEDS: ENOXAPARIN 40 MG/0.4 ML SYRINGE SUBCUT SCH (06:43)
[2017-08-05] MEDS: INSULIN REGULAR 100 UNIT/ML SUBCUT SCH ×4 (08:17→20:28)
[2017-08-05] MEDS: glyBURIDE 5 MG TABLET PO SCH (08:44)
[2017-08-05] MEDS: PANTOPRAZOLE 40 MG TABLET PO SCH (08:44)
[2017-08-05] MEDS: MONTELUKAST 10 MG TABLET PO SCH (08:44)
[2017-08-05] MEDS: hydroCHLOROthiazide 12.5 MG CAPSULE PO SCH (08:44)
[2017-08-05] MEDS: GABAPENTIN 300 MG CAPSULE PO SCH ×3 (08:46→20:28)
[2017-08-05] MEDS: SODIUM HYPOCHLORITE 0.25% IRRIG 473 ML BOTTLE TOP SCH (16:10)
[2017-08-05] MEDS: INSULIN GLARGINE 100 UNIT/ML SUBCUT SCH (20:28)
[2017-08-06] MEDS: ENOXAPARIN 40 MG/0.4 ML SYRINGE SUBCUT SCH (05:47)
[2017-08-06] MEDS: INSULIN REGULAR 100 UNIT/ML SUBCUT SCH ×2 (07:36→11:40)
[2017-08-06] MEDS: GABAPENTIN 300 MG CAPSULE PO SCH (09:08)
[2017-08-06] MEDS: hydroCHLOROthiazide 12.5 MG CAPSULE PO SCH (09:08)
[2017-08-06] MEDS: CHOLECALCIFEROL 5,000 UNIT TABLET PO SCH (09:08)
[2017-08-06] MEDS: MONTELUKAST 10 MG TABLET PO SCH (09:08)
[2017-08-06] MEDS: PANTOPRAZOLE 40 MG TABLET PO SCH (09:08)
[2017-08-06] MEDS: glyBURIDE 5 MG TABLET PO SCH (09:10)
[2017-08-06] MEDS: HYDROmorphone 2 MG/1 ML VIAL IV PRN (09:44)
[2017-08-06 11:03] VITALS: BP 134/80
[2017-08-06] MEDS: SODIUM HYPOCHLORITE 0.25% IRRIG 473 ML BOTTLE TOP SCH (11:10)
== END 2017-08-06 12:40 | DRG 629 ==
LOC: N.OR 05:57 → N.SDSINP 05:58 → N.3E 09:36
PROVIDERS: ADMIT Specialist; ATTEND Specialist

== ENCOUNTER 2020-02-24 19:08 | Inpatient (IN) ==
[2020-02-24 21:08] LABS: Basophils % 0.5 % (0.0-0.8); Eosinophils # 0.3 10*3/uL (0.0-0.87); Eosinophils % 3.5 % (0.00-10.9); Hematocrit 31.3 VOL% (42.0-52.0); Hemoglobin 10.8 GM/DL (14.0-18.0); Immature Granulocytes % 0.4 %; Immature Granulocytes Absolute 0.03 #; Lymphocytes # 1.7 10*3/uL (1.4-4.0); Lymphocytes % 20.1 % (21.2-54.2); Mean Corpuscular HGB Conc 34.5 GM/DL (32-36); Mean Corpuscular Volume 87.4 FL (87-102); Mean Platelet Volume 9.7 FL (9.6-12.0); Neutrophils % 65.5 % (38.7-73.9); Platelet Count 180 T/CUMM (130-400); Red Blood Count 3.58 MC/CUMM (3.8-5.5); Red Cell Distribution Width 13.1 % (9.3-17.3); White Blood Count 8.3 T/CUMM (4-12)
[2020-02-24 21:32] LABS: Eosinophils 3 % (0-10); Lymphocytes 19 % (20-55); Platelet Estimate Adequate; Reactive Lymphocytes Slight; Segmented Neutrophils 70 % (50-85); Total Cells Counted 100
[2020-02-24 21:44] LABS: Alanine Aminotransferase 19 U/L (16-61); Albumin 1.9 G/DL (3.4-5.0); Alkaline Phosphatase 123 U/L (45-117); Aspartate Amino Transferase 18 U/L (0-37); Bilirubin,Total < 0.39 MG/DL (0.2-1.0); Blood Urea Nitrogen 27 MG/DL (7-18); Estimated Glom Filtration Rate 44 ML/MIN; Glucose 361 MG/DL (74-106); Osmolality,Calculated 289.1 MOS/KG (273-304); Total Protein 6.2 G/DL (6.4-8.3)
[2020-02-25] MEDS ORDERED: VANCOMYCIN INJ 1,250 MG in SODIUM CHLORIDE 0.9% 250 ML IV STA (01:22)
[2020-02-25] MEDS ORDERED: GLUCAGON 1 MG VIAL IM PRN ×2 (01:23→07:39)
[2020-02-25] MEDS ORDERED: ACETAMINOPHEN 325 MG TABLET PO PRN (01:23)
[2020-02-25] MEDS ORDERED: DEXTROSE 50% 25 GM/50 ML VIAL IV PRN ×2 (01:23→07:39)
[2020-02-25] MEDS ORDERED: ONDANSETRON 4 MG/2 ML VIAL IV PRN (01:23)
[2020-02-25] MEDS ORDERED: VANCOMYCIN INJ 1,000 MG in SODIUM CHLORIDE 0.9% 250 ML IV STA (01:24)
[2020-02-25] MEDS: PIPERACILLIN/TAZOBACTAM 3,375 MG in SODIUM CHLORIDE 0.9% 100 ML IV SCH ×3 (02:30→18:24)
[2020-02-25] MEDS ORDERED: INFLUENZA VIRUS VACCINE 0.5 ML SYRINGE IM ONE (03:11)
[2020-02-25] MEDS: LACTATED RINGERS 1,000 ML IV SCH ×3 (03:46→17:30)
[2020-02-25] MEDS: VANCOMYCIN INJ 1,250 MG in SODIUM CHLORIDE 0.9% 250 ML IV SCH (04:28)
[2020-02-25 06:49] LABS: Basophils % 0.5 % (0.0-0.8); Eosinophils # 0.2 10*3/uL (0.0-0.87); Eosinophils % 2.8 % (0.00-10.9); Hematocrit 31.7 VOL% (42.0-52.0); Hemoglobin 10.5 GM/DL (14.0-18.0); Immature Granulocytes % 0.2 %; Immature Granulocytes Absolute 0.02 #; Lymphocytes # 1.5 10*3/uL (1.4-4.0); Lymphocytes % 18.8 % (21.2-54.2); Mean Corpuscular HGB Conc 33.1 GM/DL (32-36); Mean Corpuscular Volume 89.5 FL (87-102); Mean Platelet Volume 10.4 FL (9.6-12.0); Monocytes % 11.3 % (1.7-12.7); Neutrophils % 66.4 % (38.7-73.9); Platelet Count 177 T/CUMM (130-400); Red Blood Count 3.54 MC/CUMM (3.8-5.5); Red Cell Distribution Width 13.2 % (9.3-17.3); White Blood Count 8.1 T/CUMM (4-12)
[2020-02-25 07:14] LABS: Anisocytosis 1+; Burr Cells Few; Platelet Estimate Normal
[2020-02-25 07:16] LABS: Calcium 8.2 MG/DL (8.5-10.1); Osmolality,Calculated 291.5 MOS/KG (273-304)
[2020-02-25] MEDS ORDERED: metFORMIN 500 MG TABLET PO SCH (08:00)
[2020-02-25] MEDS: PANTOPRAZOLE 40 MG TABLET PO SCH (08:51)
[2020-02-25] MEDS: INSULIN REGULAR 100 UNIT/ML SUBCUT SCH ×7 (08:51→20:57)
[2020-02-25] MEDS: hydroCHLOROthiazide 12.5 MG CAPSULE PO SCH (08:51)
[2020-02-25] MEDS: GABAPENTIN 300 MG CAPSULE PO SCH ×3 (08:56→20:55)
[2020-02-25] MEDS ORDERED: INSULIN GLARGINE 100 UNIT/ML SUBCUT SCH (21:00)
[2020-02-25] MEDS ORDERED: PREGABALIN 300 MG PO SCH (21:00)
[2020-02-26] MEDS: PIPERACILLIN/TAZOBACTAM 3,375 MG in SODIUM CHLORIDE 0.9% 100 ML IV SCH ×2 (02:11→10:18)
[2020-02-26] MEDS: VANCOMYCIN INJ 1,250 MG in SODIUM CHLORIDE 0.9% 250 ML IV SCH (06:10)
[2020-02-26] MEDS: LACTATED RINGERS 1,000 ML IV SCH ×2 (07:20→10:15)
[2020-02-26] MEDS: INSULIN REGULAR 100 UNIT/ML SUBCUT SCH ×4 (07:30→12:30)
[2020-02-26] MEDS ORDERED: glipiZIDE 5 MG TABLET PO SCH (08:00)
[2020-02-26] MEDS: GABAPENTIN 300 MG CAPSULE PO SCH ×2 (08:57→16:12)
[2020-02-26] MEDS: PANTOPRAZOLE 40 MG TABLET PO SCH (08:57)
[2020-02-26] MEDS: hydroCHLOROthiazide 12.5 MG CAPSULE PO SCH (08:57)
[2020-02-26 16:27] VITALS: BP 130/88
== END 2020-02-26 16:23 | disposition home or self-care (01) | DRG 638 ==
LOC: N.ED 19:08 → N.EDINP 02-25 01:23 → N.3E 02-25 03:05
PROVIDERS: ADMIT Surgery; ATTEND Surgery

== ENCOUNTER 2020-03-13 13:20 | Inpatient (IN) ==
[2020-03-13 18:24] LABS: Alanine Aminotransferase 20 U/L (16-61); Albumin 1.9 G/DL (3.4-5.0); Alkaline Phosphatase 126 U/L (45-117); Aspartate Amino Transferase 13 U/L (0-37); Bilirubin,Total < 0.39 MG/DL (0.2-1.0); Blood Urea Nitrogen 29 MG/DL (7-18); Calcium 8.5 MG/DL (8.5-10.1); Estimated Glom Filtration Rate 36 ML/MIN; Glucose 308 MG/DL (74-106); Osmolality,Calculated 275.9 MOS/KG (273-304); Total Protein 7.1 G/DL (6.4-8.3)
[2020-03-13 18:37] LABS: Basophils # 0.1 10*3/uL (0.0-0.2); Basophils % 0.3 % (0.0-0.8); Eosinophils # 0.2 10*3/uL (0.0-0.87); Hematocrit 29.6 VOL% (42.0-52.0); Hemoglobin 9.9 GM/DL (14.0-18.0); Immature Granulocytes % 0.6 %; Lymphocytes # 1.8 10*3/uL (1.4-4.0); Lymphocytes % 10.8 % (21.2-54.2); Mean Corpuscular HGB Conc 33.4 GM/DL (32-36); Mean Corpuscular Volume 87.3 FL (87-102); Mean Platelet Volume 10.4 FL (9.6-12.0); Monocytes % 7.4 % (1.7-12.7); Neutrophils % 79.9 % (38.7-73.9); Platelet Count 251 T/CUMM (130-400); Red Blood Count 3.39 MC/CUMM (3.8-5.5); Red Cell Distribution Width 13.2 % (9.3-17.3); White Blood Count 16.5 T/CUMM (4-12)
[2020-03-13] MEDS ORDERED: ACETAMINOPHEN 500 MG TABLET PO STA (19:13)
[2020-03-13] MEDS ORDERED: VANCOMYCIN INJ 1,000 MG in SODIUM CHLORIDE 0.9% 250 ML IV STA (19:13)
[2020-03-13] MEDS ORDERED: SODIUM CHLORIDE 0.9% 1,000 ML IV STA (19:13)
[2020-03-13] MEDS ORDERED: MORPHINE 4 MG/1 ML VIAL IV STA (19:13)
[2020-03-13] MEDS ORDERED: ONDANSETRON 4 MG/2 ML VIAL IV STA (19:13)
[2020-03-13] MEDS ORDERED: GLUCAGON 1 MG VIAL IM PRN (19:16)
[2020-03-13] MEDS ORDERED: DEXTROSE 50% 25 GM/50 ML VIAL IV PRN (19:16)
[2020-03-13] MEDS ORDERED: ACETAMINOPHEN 325 MG TABLET PO PRN (19:16)
[2020-03-13] MEDS ORDERED: ONDANSETRON 4 MG/2 ML VIAL IV PRN (19:16)
[2020-03-13] MEDS: LACTATED RINGERS 1,000 ML IV SCH (19:25)
[2020-03-13] MEDS: INSULIN REGULAR 100 UNIT/ML SUBCUT SCH (22:08)
[2020-03-13] MEDS: PIPERACILLIN/TAZOBACTAM 3,375 MG in SODIUM CHLORIDE 0.9% 100 ML IV SCH (22:18)
[2020-03-14 05:42] LABS: Basophils # 0.1 10*3/uL (0.0-0.2); Basophils % 0.4 % (0.0-0.8); Eosinophils # 0.3 10*3/uL (0.0-0.87); Eosinophils % 2.1 % (0.00-10.9); Hematocrit 29.7 VOL% (42.0-52.0); Hemoglobin 9.7 GM/DL (14.0-18.0); Immature Granulocytes % 0.6 %; Immature Granulocytes Absolute 0.09 #; Lymphocytes % 14.3 % (21.2-54.2); Mean Corpuscular HGB Conc 32.7 GM/DL (32-36); Mean Corpuscular Volume 88.4 FL (87-102); Mean Platelet Volume 10.2 FL (9.6-12.0); Monocytes % 10.4 % (1.7-12.7); Neutrophils % 72.2 % (38.7-73.9); Platelet Count 237 T/CUMM (130-400); Red Blood Count 3.36 MC/CUMM (3.8-5.5); Red Cell Distribution Width 13.2 % (9.3-17.3); White Blood Count 13.9 T/CUMM (4-12)
[2020-03-14 05:57] LABS: Calcium 8.4 MG/DL (8.5-10.1); Osmolality,Calculated 274.1 MOS/KG (273-304)
[2020-03-14 06:12] LABS: Hypochromasia 1+; Microcytosis 1+; Platelet Estimate Adequate
[2020-03-14] MEDS: PIPERACILLIN/TAZOBACTAM 3,375 MG in SODIUM CHLORIDE 0.9% 100 ML IV SCH ×3 (07:25→20:36)
[2020-03-14] MEDS ORDERED: ceFAZolin 2,000 MG in PREMIX 1 EACH IV ONE (08:45)
[2020-03-14] MEDS ORDERED: LIDOCAINE 1% 20 ML VIAL ONE (10:01)
[2020-03-14] MEDS ORDERED: BUPIVACAINE MPF 0.25% 30 ML VIAL ONE (10:01)
[2020-03-14] MEDS: INSULIN REGULAR 100 UNIT/ML SUBCUT SCH ×4 (10:06→20:38)
[2020-03-14] MEDS: LACTATED RINGERS 1,000 ML IV SCH ×2 (10:07→14:56)
[2020-03-14] MEDS: PANTOPRAZOLE 40 MG TABLET PO SCH (10:07)
[2020-03-14] MEDS ORDERED: MIDAZOLAM 2 MG/2 ML VIAL ONE (10:17)
[2020-03-14] MEDS ORDERED: fentaNYL 100 MCG/2 ML VIAL ONE ×2 (10:17→10:50)
[2020-03-14] MEDS ORDERED: SEVOFLURANE 1 UNIT/15 MINUTE INH ONE ×3 (10:49→11:05)
[2020-03-14] MEDS ORDERED: propofoL 200 MG/20 ML VIAL IV ONE (10:49)
[2020-03-14] MEDS ORDERED: LIDOCAINE 2% 5 ML VIAL ONE (10:49)
[2020-03-14] MEDS ORDERED: LACTATED RINGERS 1,000 ML IV ONE (10:49)
[2020-03-14] MEDS ORDERED: ONDANSETRON 4 MG/2 ML VIAL ONE (10:49)
[2020-03-14] MEDS: HYDROmorphone 2 MG/1 ML VIAL IV PRN (15:55)
[2020-03-14] MEDS: VANCOMYCIN INJ 1,250 MG in SODIUM CHLORIDE 0.9% 250 ML IV SCH (17:11)
[2020-03-15] MEDS: HYDROmorphone 2 MG/1 ML VIAL IV PRN ×4 (00:47→22:58)
[2020-03-15] MEDS: LACTATED RINGERS 1,000 ML IV SCH ×2 (04:10→07:57)
[2020-03-15] MEDS: PIPERACILLIN/TAZOBACTAM 3,375 MG in SODIUM CHLORIDE 0.9% 100 ML IV SCH ×3 (04:30→20:30)
[2020-03-15] MEDS: PANTOPRAZOLE 40 MG TABLET PO SCH (09:16)
[2020-03-15] MEDS: INSULIN REGULAR 100 UNIT/ML SUBCUT SCH ×4 (09:16→20:30)
[2020-03-15] MEDS: ENOXAPARIN 30 MG/0.3 ML SYRINGE SUBCUT SCH (09:16)
[2020-03-15] MEDS: SODIUM HYPOCHLORITE 0.25% IRRIG 473 ML BOTTLE TOP SCH (11:07)
[2020-03-15] MEDS: VANCOMYCIN INJ 1,250 MG in SODIUM CHLORIDE 0.9% 250 ML IV SCH (17:54)
[2020-03-16] MEDS: PIPERACILLIN/TAZOBACTAM 3,375 MG in SODIUM CHLORIDE 0.9% 100 ML IV SCH ×2 (05:00→12:46)
[2020-03-16] MEDS: HYDROmorphone 2 MG/1 ML VIAL IV PRN ×2 (07:18→12:42)
[2020-03-16] MEDS: ENOXAPARIN 30 MG/0.3 ML SYRINGE SUBCUT SCH (09:41)
[2020-03-16] MEDS: PANTOPRAZOLE 40 MG TABLET PO SCH (09:42)
[2020-03-16] MEDS: INSULIN REGULAR 100 UNIT/ML SUBCUT SCH ×2 (09:42→12:45)
[2020-03-16 11:34] VITALS: BP 150/94
[2020-03-16] MEDS: SODIUM HYPOCHLORITE 0.25% IRRIG 473 ML BOTTLE TOP SCH (12:42)
== END 2020-03-16 13:45 | disposition home or self-care (01) | DRG 240 ==
LOC: N.ED 13:20 → N.3E 20:00
PROVIDERS: ADMIT Surgery; ATTEND Surgery

== ENCOUNTER 2020-04-24 05:58 | Inpatient (IN) ==
[2020-04-24] MEDS ORDERED: LACTATED RINGERS 1,000 ML IV SCH ×2 (06:00→13:00)
[2020-04-24] MEDS ORDERED: DIAZEPAM 5 MG TABLET PO ONE (06:37)
[2020-04-24] MEDS ORDERED: ACETAMINOPHEN 500 MG TABLET PO ONE (06:37)
[2020-04-24] MEDS ORDERED: PANTOPRAZOLE 40 MG TABLET PO ONE (06:37)
[2020-04-24] MEDS ORDERED: GABAPENTIN 400 MG CAPSULE PO ONE (06:37)
[2020-04-24] MEDS ORDERED: MIDAZOLAM 2 MG/2 ML VIAL ONE (08:10)
[2020-04-24] MEDS ORDERED: LIDOCAINE 2% 5 ML VIAL ONE (08:10)
[2020-04-24] MEDS ORDERED: propofoL 200 MG/20 ML VIAL IV ONE (08:10)
[2020-04-24] MEDS ORDERED: fentaNYL 100 MCG/2 ML VIAL ONE (08:10)
[2020-04-24] MEDS ORDERED: DEXAMETHASONE 4 MG/1 ML VIAL ONE (08:13)
[2020-04-24] MEDS ORDERED: ROPIVACAINE 0.5% 30 ML VIAL ONE (08:14)
[2020-04-24] MEDS ORDERED: LIDOCAINE 1% 5 ML VIAL ONE (08:14)
[2020-04-24] MEDS ORDERED: ONDANSETRON 4 MG/2 ML VIAL ONE ×2 (08:43)
[2020-04-24] MEDS ORDERED: SEVOFLURANE 1 UNIT/15 MINUTE INH ONE ×4 (08:43→09:54)
[2020-04-24] MEDS ORDERED: PHENYLEPHRINE 1 MG/10 ML SYRINGE IV ONE (09:11)
[2020-04-24] MEDS ORDERED: GLUCAGON 1 MG VIAL IM PRN (11:38)
[2020-04-24] MEDS ORDERED: DEXTROSE 50% 25 GM/50 ML VIAL IV PRN (11:38)
[2020-04-24] MEDS ORDERED: ONDANSETRON 4 MG/2 ML VIAL IV PRN (11:38)
[2020-04-24 12:28] LABS: Basophils # 0.1 10*3/uL (0.0-0.2); Basophils % 0.4 % (0.0-0.8); Eosinophils # 0.1 10*3/uL (0.0-0.87); Eosinophils % 0.3 % (0.00-10.9); Hematocrit 28.1 VOL% (42.0-52.0); Hemoglobin 8.7 GM/DL (14.0-18.0); Immature Granulocytes % 0.6 %; Lymphocytes # 0.7 10*3/uL (1.4-4.0); Lymphocytes % 4.6 % (21.2-54.2); Mean Corpuscular Volume 91.5 FL (87-102); Mean Platelet Volume 9.7 FL (9.6-12.0); Monocytes % 1.1 % (1.7-12.7); Platelet Count 275 T/CUMM (130-400); Red Blood Count 3.07 MC/CUMM (3.8-5.5)
[2020-04-24 12:53] LABS: Calcium 7.8 MG/DL (8.5-10.1); Osmolality,Calculated 286.1 MOS/KG (273-304)
[2020-04-24 12:57] LABS: Potassium 7.8 MMOL/L (3.5-5.1)
[2020-04-24] MEDS ORDERED: INSULIN REGULAR 100 UNIT/ML IV ONE (13:02)
[2020-04-24] MEDS ORDERED: DEXTROSE 50% 25 GM/50 ML VIAL IV ONE (13:02)
[2020-04-24] MEDS ORDERED: CALCIUM GLUCONATE 1,000 MG in SODIUM CHLORIDE 0.9% 100 ML IV ONE (13:02)
[2020-04-24] MEDS ORDERED: SODIUM POLYSTYRENE SULFATE 15 GM/60 ML BOTTLE PO ONE ×2 (13:03→20:18)
[2020-04-24] MEDS ORDERED: INSULIN REGULAR 10 UNIT, CALCIUM GLUCONATE 1,000 MG in DEXTROSE 10% 250 ML IV ONE (13:05)
[2020-04-24 13:10] LABS: Eosinophils 1 % (0-10); Lymphocytes 6 % (20-55); Segmented Neutrophils 89 % (50-85); Total Cells Counted 100
[2020-04-24 13:11] LABS: Hypochromasia 2+; Microcytosis 1+; Platelet Estimate Adequate; Polychromasia Slight; Target Cells Few
[2020-04-24] MEDS: ACETAMINOPHEN 325 MG TABLET PO SCH ×2 (14:42→20:55)
[2020-04-24] MEDS: PREGABALIN 75 MG CAPSULE PO SCH ×2 (14:43→20:48)
[2020-04-24] MEDS: GABAPENTIN 100 MG CAPSULE PO SCH ×2 (14:43→20:48)
[2020-04-24] MEDS ORDERED: KETOROLAC 15 MG/1 ML VIAL IV SCH (15:00)
[2020-04-24] MEDS ORDERED: SODIUM BICARB INJ 50 MEQ in DEXTROSE 5% 1,000 ML IV SCH (15:00)
[2020-04-24] MEDS: INSULIN REGULAR 100 UNIT/ML SUBCUT SCH ×2 (16:39→20:54)
[2020-04-24] MEDS ORDERED: SODIUM BICARBONATE 10 MEQ/10 ML SYRINGE IV ONE ×2 (16:51→20:18)
[2020-04-24 17:30] LABS: Calcium 8.1 MG/DL (8.5-10.1); Osmolality,Calculated 288.4 MOS/KG (273-304)
[2020-04-24 17:32] LABS: Potassium 7.5 MMOL/L (3.5-5.1)
[2020-04-24] MEDS ORDERED: SODIUM CHLORIDE 0.9% 1,000 ML IV ONE (17:35)
[2020-04-24] MEDS ORDERED: FUROSEMIDE 20 MG/2 ML VIAL IV ONE (17:35)
[2020-04-24] MEDS: SODIUM BICARB INJ 150 MEQ in DEXTROSE 5% 1,000 ML IV SCH (19:09)
[2020-04-24 20:12] LABS: Calcium 7.8 MG/DL (8.5-10.1); Osmolality,Calculated 290.1 MOS/KG (273-304)
[2020-04-24 20:15] LABS: Potassium 6.4 MMOL/L (3.5-5.1)
[2020-04-24] MEDS: amLODIPine 10 MG TABLET PO SCH (20:54)
[2020-04-24] MEDS: HYDROmorphone 2 MG/1 ML VIAL IV PRN (21:58)
[2020-04-25] MEDS: ACETAMINOPHEN 325 MG TABLET PO SCH ×4 (02:27→21:56)
[2020-04-25] MEDS: HYDROmorphone 2 MG/1 ML VIAL IV PRN ×8 (03:18→23:23)
[2020-04-25 05:43] LABS: Basophils % 0.3 % (0.0-0.8); Eosinophils % 0.2 % (0.00-10.9); Hematocrit 24.9 VOL% (42.0-52.0); Immature Granulocytes % 0.3 %; Immature Granulocytes Absolute 0.04 #; Lymphocytes # 1.7 10*3/uL (1.4-4.0); Lymphocytes % 14.5 % (21.2-54.2); Mean Corpuscular HGB Conc 32.1 GM/DL (32-36); Mean Corpuscular Volume 88.9 FL (87-102); Mean Platelet Volume 10.2 FL (9.6-12.0); Monocytes % 9.5 % (1.7-12.7); Neutrophils % 75.2 % (38.7-73.9); Platelet Count 229 T/CUMM (130-400); Red Cell Distribution Width 15.7 % (9.3-17.3); White Blood Count 11.8 T/CUMM (4-12)
[2020-04-25 06:28] LABS: Calcium 7.7 MG/DL (8.5-10.1); Potassium 4.4 MMOL/L (3.5-5.1)
[2020-04-25] MEDS: GABAPENTIN 100 MG CAPSULE PO SCH ×3 (09:05→21:55)
[2020-04-25] MEDS: ENOXAPARIN 40 MG/0.4 ML SYRINGE SUBCUT SCH (09:05)
[2020-04-25] MEDS: DULoxetine 30 MG CAPSULE PO SCH (09:05)
[2020-04-25] MEDS: INSULIN REGULAR 100 UNIT/ML SUBCUT SCH ×4 (09:05→21:52)
[2020-04-25] MEDS: sitaGLIPtin 25 MG TABLET PO SCH (09:05)
[2020-04-25] MEDS: PREGABALIN 75 MG CAPSULE PO SCH ×3 (09:05→21:54)
[2020-04-25] MEDS: MULTIVITAMIN (CENTRUM) TABLET PO SCH (09:05)
[2020-04-25] MEDS: SODIUM BICARB INJ 150 MEQ in DEXTROSE 5% 1,000 ML IV SCH ×2 (09:10→22:30)
[2020-04-25] MEDS: amLODIPine 10 MG TABLET PO SCH (21:55)
[2020-04-26] MEDS: ACETAMINOPHEN 325 MG TABLET PO SCH ×3 (04:25→14:46)
[2020-04-26] MEDS: HYDROmorphone 2 MG/1 ML VIAL IV PRN (04:25)
[2020-04-26] MEDS: GABAPENTIN 100 MG CAPSULE PO SCH ×2 (08:33→14:46)
[2020-04-26] MEDS: MULTIVITAMIN (CENTRUM) TABLET PO SCH (08:33)
[2020-04-26] MEDS: sitaGLIPtin 25 MG TABLET PO SCH (08:33)
[2020-04-26] MEDS: DULoxetine 30 MG CAPSULE PO SCH (08:33)
[2020-04-26] MEDS: PREGABALIN 75 MG CAPSULE PO SCH ×2 (08:34→14:46)
[2020-04-26] MEDS: INSULIN REGULAR 100 UNIT/ML SUBCUT SCH ×2 (08:35→11:03)
[2020-04-26] MEDS: ENOXAPARIN 40 MG/0.4 ML SYRINGE SUBCUT SCH (08:35)
[2020-04-26] MEDS: SODIUM BICARB INJ 150 MEQ in DEXTROSE 5% 1,000 ML IV SCH (08:39)
[2020-04-26] MEDS ORDERED: CHOLECALCIFEROL 5,000 UNIT TABLET PO SCH (09:00)
[2020-04-26 11:32] VITALS: BP 96/59
== END 2020-04-26 16:22 | DRG 617 ==
LOC: N.OR 05:58 → N.SDSINP 06:00 → EDSTATUS 08:45 → N.5E 09:53
PROVIDERS: ADMIT Surgery; ATTEND Surgery

== ENCOUNTER 2020-09-11 18:02 | Inpatient (IN) ==
[2020-09-11] MEDS ORDERED: VANCOMYCIN INJ 1,000 MG in SODIUM CHLORIDE 0.9% 250 ML IV STA (21:08)
[2020-09-11 21:29] LABS: Basophils # 0.1 10*3/uL (0.0-0.2); Basophils % 0.7 % (0.0-0.8); Eosinophils # 0.3 10*3/uL (0.0-0.87); Eosinophils % 3.8 % (0.00-10.9); Hematocrit 30.5 VOL% (42.0-52.0); Hemoglobin 9.8 GM/DL (14.0-18.0); Immature Granulocytes % 0.6 %; Immature Granulocytes Absolute 0.04 #; Lymphocytes # 1.7 10*3/uL (1.4-4.0); Lymphocytes % 24.2 % (21.2-54.2); Mean Corpuscular HGB Conc 32.1 GM/DL (32-36); Mean Platelet Volume 9.6 FL (9.6-12.0); Monocytes % 11.1 % (1.7-12.7); Neutrophils % 59.6 % (38.7-73.9); Platelet Count 227 T/CUMM (130-400); Red Blood Count 3.35 MC/CUMM (3.8-5.5); Red Cell Distribution Width 14.7 % (9.3-17.3); White Blood Count 6.9 T/CUMM (4-12)
[2020-09-11 21:47] LABS: Alanine Aminotransferase 22 U/L (16-61); Albumin 2.6 G/DL (3.4-5.0); Alkaline Phosphatase 107 U/L (45-117); Aspartate Amino Transferase 22 U/L (0-37); Bilirubin,Total < 0.39 MG/DL (0.2-1.0); Blood Urea Nitrogen 24 MG/DL (7-18); Calcium 8.2 MG/DL (8.5-10.1); Carbon Dioxide 23 MMOL/L (21-32); Estimated Glom Filtration Rate 33 ML/MIN; Glucose 160 MG/DL (74-106); Osmolality,Calculated 283.5 MOS/KG (273-304); Potassium 4.9 MMOL/L (3.5-5.1); Sodium 139 MMOL/L (136-145); Total Protein 6.7 G/DL (6.4-8.2)
[2020-09-11] MEDS ORDERED: DEXTROSE 50% 25 GM/50 ML VIAL IV PRN (23:16)
[2020-09-11] MEDS ORDERED: GLUCAGON 1 MG VIAL IM PRN (23:16)
[2020-09-11] MEDS ORDERED: DOCUSATE SODIUM 100 MG CAPSULE PO PRN (23:16)
[2020-09-11] MEDS ORDERED: hydrALAZINE 20 MG/1 ML VIAL IV PRN (23:16)
[2020-09-11] MEDS ORDERED: ACETAMINOPHEN 325 MG TABLET PO PRN (23:16)
[2020-09-12] MEDS: PIPERACILLIN/TAZOBACTAM 3,375 MG in SODIUM CHLORIDE 0.9% 100 ML IV SCH ×4 (00:59→23:38)
[2020-09-12] MEDS: MORPHINE 4 MG/1 ML VIAL IV PRN ×5 (01:00→22:22)
[2020-09-12 05:43] LABS: Basophils % 0.6 % (0.0-0.8); Eosinophils # 0.4 10*3/uL (0.0-0.87); Hematocrit 29.8 VOL% (42.0-52.0); Hemoglobin 9.3 GM/DL (14.0-18.0); Immature Granulocytes % 0.6 %; Immature Granulocytes Absolute 0.04 #; Lymphocytes # 1.6 10*3/uL (1.4-4.0); Lymphocytes % 22.3 % (21.2-54.2); Mean Corpuscular HGB Conc 31.2 GM/DL (32-36); Mean Corpuscular Volume 91.4 FL (87-102); Mean Platelet Volume 9.4 FL (9.6-12.0); Monocytes % 11.6 % (1.7-12.7); Neutrophils % 59.9 % (38.7-73.9); Platelet Count 219 T/CUMM (130-400); Red Blood Count 3.26 MC/CUMM (3.8-5.5); Red Cell Distribution Width 14.6 % (9.3-17.3); White Blood Count 7.1 T/CUMM (4-12)
[2020-09-12 05:55] LABS: PT Patient Result 11.2 SECS (10.5-12.0)
[2020-09-12 06:15] LABS: Anisocytosis Slight; Eosinophils 5 % (0-10); Lymphocytes 20 % (20-55); Macrocytosis Slight; Nucleated Red Blood Cells 1 (0-5); Platelet Estimate Normal; Segmented Neutrophils 69 % (50-85); Total Cells Counted 100
[2020-09-12 06:17] LABS: Calcium 8.1 MG/DL (8.5-10.1); Osmolality,Calculated 286.3 MOS/KG (273-304); Potassium 4.7 MMOL/L (3.5-5.1)
[2020-09-12] MEDS: PANTOPRAZOLE 40 MG TABLET PO SCH (09:04)
[2020-09-12] MEDS: ENOXAPARIN 30 MG/0.3 ML SYRINGE SUBCUT SCH (09:04)
[2020-09-12] MEDS: ONDANSETRON 4 MG/2 ML VIAL IV PRN ×3 (09:29→19:27)
[2020-09-12] MEDS: INSULIN LISPRO 100 UNIT/ML SUBCUT SCH ×4 (11:16→21:05)
[2020-09-12] MEDS ORDERED: LIDOCAINE 1%/EPI INJ 20 ML VIAL ONE (15:28)
[2020-09-12] MEDS ORDERED: BUPIVACAINE MPF 0.25% 30 ML VIAL ONE (15:28)
[2020-09-12] MEDS ORDERED: LIDOCAINE 2% 5 ML VIAL ONE (15:54)
[2020-09-12] MEDS ORDERED: propofoL 200 MG/20 ML VIAL IV ONE (15:54)
[2020-09-12] MEDS ORDERED: MIDAZOLAM 2 MG/2 ML VIAL ONE (15:54)
[2020-09-12] MEDS ORDERED: ONDANSETRON 4 MG/2 ML VIAL ONE (16:06)
[2020-09-12] MEDS ORDERED: DEXAMETHASONE 4 MG/1 ML VIAL ONE (16:06)
[2020-09-12] MEDS ORDERED: SEVOFLURANE 1 UNIT/15 MINUTE INH ONE (16:06)
[2020-09-12] MEDS ORDERED: fentaNYL 100 MCG/2 ML VIAL ONE (16:07)
[2020-09-12] MEDS ORDERED: PHENYLEPHRINE 1 MG/10 ML SYRINGE IV ONE ×2 (16:15→16:23)
[2020-09-12] MEDS ORDERED: SODIUM CHLORIDE 0.9% 1,000 ML IV ONE (16:26)
[2020-09-12] MEDS: PREGABALIN 75 MG CAPSULE PO SCH ×2 (17:43→21:04)
[2020-09-12] MEDS: DULoxetine 30 MG CAPSULE PO SCH (17:43)
[2020-09-12] MEDS ORDERED: lisinopriL 10 MG TABLET PO SCH (21:00)
[2020-09-12] MEDS ORDERED: amLODIPine 10 MG TABLET PO SCH (21:00)
[2020-09-12] MEDS ORDERED: VANCOMYCIN INJ 1,250 MG in SODIUM CHLORIDE 0.9% 250 ML IV SCH (21:30)
[2020-09-13] MEDS: MORPHINE 4 MG/1 ML VIAL IV PRN ×2 (04:26→08:48)
[2020-09-13 04:50] LABS: Basophils # 0.1 10*3/uL (0.0-0.2); Basophils % 0.9 % (0.0-0.8); Eosinophils # 0.4 10*3/uL (0.0-0.87); Eosinophils % 6.3 % (0.00-10.9); Immature Granulocytes % 0.4 %; Immature Granulocytes Absolute 0.03 #; Lymphocytes # 1.4 10*3/uL (1.4-4.0); Lymphocytes % 20.5 % (21.2-54.2); Mean Corpuscular HGB Conc 32.1 GM/DL (32-36); Mean Corpuscular Volume 90.9 FL (87-102); Mean Platelet Volume 9.4 FL (9.6-12.0); Neutrophils % 63.9 % (38.7-73.9); Platelet Count 213 T/CUMM (130-400); Red Blood Count 3.08 MC/CUMM (3.8-5.5); Red Cell Distribution Width 14.6 % (9.3-17.3)
[2020-09-13 05:20] LABS: Calcium 8.1 MG/DL (8.5-10.1); Osmolality,Calculated 278.7 MOS/KG (273-304); Potassium 4.8 MMOL/L (3.5-5.1)
[2020-09-13] MEDS: INSULIN LISPRO 100 UNIT/ML SUBCUT SCH ×2 (07:31→11:14)
[2020-09-13] MEDS ORDERED: FERROUS SULFATE 325 MG TABLET PO SCH (08:00)
[2020-09-13] MEDS ORDERED: CHOLECALCIFEROL 5,000 UNIT TABLET PO SCH (08:08)
[2020-09-13] MEDS: DULoxetine 30 MG CAPSULE PO SCH (08:31)
[2020-09-13] MEDS: PANTOPRAZOLE 40 MG TABLET PO SCH (08:31)
[2020-09-13] MEDS: PIPERACILLIN/TAZOBACTAM 3,375 MG in SODIUM CHLORIDE 0.9% 100 ML IV SCH (08:32)
[2020-09-13] MEDS: PREGABALIN 75 MG CAPSULE PO SCH (08:32)
[2020-09-13] MEDS: ENOXAPARIN 30 MG/0.3 ML SYRINGE SUBCUT SCH (08:33)
[2020-09-13] MEDS ORDERED: MULTIVITAMIN (CENTRUM) TABLET PO SCH (09:00)
[2020-09-13 11:26] VITALS: BP 147/85
[2020-09-13] MEDS ORDERED: CLINDAMYCIN 300 MG CAPSULE PO SCH (12:00)
== END 2020-09-13 12:20 | disposition home or self-care (01) | DRG 566 ==
LOC: N.ED 18:02 → N.EDINP 22:17 → N.3E 09-12 00:41
PROVIDERS: ADMIT Internal Medicine; ATTEND Internal Medicine

== ENCOUNTER 2022-05-13 15:23 | Inpatient (IN) ==
[2022-05-13 19:10] LABS: Basophils % 0.4 % (0.0-0.8); Eosinophils # 0.1 10*3/uL (0.0-0.87); Eosinophils % 1.5 % (0.00-10.9); Hematocrit 25.6 VOL% (42.0-52.0); Hemoglobin 8.4 GM/DL (14.0-18.0); Immature Granulocytes % 0.7 %; Immature Granulocytes Absolute 0.05 #; Lymphocytes # 0.8 10*3/uL (1.4-4.0); Lymphocytes % 10.1 % (21.2-54.2); Mean Corpuscular HGB Conc 32.8 GM/DL (32-36); Mean Corpuscular Volume 95.9 FL (87-102); Mean Platelet Volume 11.3 FL (9.6-12.0); Monocytes # 0.7 10*3/uL (0.11-0.8); Monocytes % 8.9 % (1.7-12.7); Neutrophils % 78.4 % (38.7-73.9); Platelet Count 126 T/CUMM (130-400); Red Blood Count 2.67 MC/CUMM (3.8-5.5); Red Cell Distribution Width 14.4 % (9.3-17.3)
[2022-05-13 19:21] LABS: Alanine Aminotransferase 52 U/L (16-61); Albumin 2.2 G/DL (3.4-5.0); Alkaline Phosphatase 118 U/L (45-117); Aspartate Amino Transferase 22 U/L (0-37); Bilirubin,Total < 0.39 MG/DL (0.20-1.00); Blood Urea Nitrogen 70 MG/DL (7-18); Calcium 6.5 MG/DL (8.5-10.1); Carbon Dioxide 20 MMOL/L (21-32); Chloride 116 MMOL/L (98-107); Glucose 133 MG/DL (74-106); Osmolality,Calculated 305.1 MOS/KG (273-304); Potassium 4.6 MMOL/L (3.5-5.1); Sodium 142 MMOL/L (136-145); Total Protein 5.4 G/DL (6.4-8.2)
[2022-05-13] MEDS ORDERED: hydrALAZINE 20 MG/1 ML VIAL IV PRN (19:44)
[2022-05-13] MEDS ORDERED: FUROSEMIDE 40 MG/4 ML VIAL IV STA (19:44)
[2022-05-13] MEDS ORDERED: NICOTINE 21 MG/24 HR PATCH TRANSDERM PRN (19:44)
[2022-05-13] MEDS ORDERED: ACETAMINOPHEN 325 MG TABLET PO PRN (19:44)
[2022-05-13] MEDS ORDERED: ONDANSETRON 4 MG/2 ML VIAL IV PRN (19:44)
[2022-05-13] MEDS ORDERED: ASPIRIN 325 MG TABLET PO STA (19:54)
[2022-05-13] MEDS ORDERED: ENOXAPARIN 80 MG/0.8 ML SYRINGE SUBCUT STA (20:14)
[2022-05-13] MEDS ORDERED: CALCIUM GLUCONATE RIDER 1,000 MG/50 ML PREMIX IV ONE (21:00)
[2022-05-13] MEDS ORDERED: ENOXAPARIN 30 MG/0.3 ML SYRINGE SUBCUT SCH (21:00)
[2022-05-13] MEDS ORDERED: PREGABALIN 50 MG CAPSULE PO ONE (21:00)
[2022-05-13] MEDS ORDERED: PREGABALIN 300 MG PO SCH (21:00)
[2022-05-13 23:16] LABS: % Iron Saturation 7.8 % (18-50); Ferritin 90.1 ng/mL (26-388)
[2022-05-14] MEDS: INSULIN LISPRO 100 UNIT/ML SUBCUT SCH ×5 (00:05→20:20)
[2022-05-14] MEDS: amLODIPine 2.5 MG TABLET PO SCH ×2 (00:06→21:15)
[2022-05-14] MEDS: ATORVASTATIN 10 MG TABLET PO SCH ×2 (00:08→21:15)
[2022-05-14] MEDS: cefTRIAXone 1,000 MG in SODIUM CHLORIDE 0.9% 100 ML IV SCH ×2 (00:11→21:17)
[2022-05-14] MEDS: ALBUTEROL/IPRATROPIUM 3 ML NEB RESP TX SCH ×4 (00:27→18:55)
[2022-05-14] MEDS: METOPROLOL SUCCINATE XL 100 MG TABLET PO SCH ×3 (00:27→21:15)
[2022-05-14 01:01] LABS: Basophils % 0.3 % (0.0-0.8); Eosinophils # 0.1 10*3/uL (0.0-0.87); Eosinophils % 2.2 % (0.00-10.9); Hemoglobin 7.7 GM/DL (14.0-18.0); Immature Granulocytes % 0.5 %; Immature Granulocytes Absolute 0.03 #; Lymphocytes # 1.4 10*3/uL (1.4-4.0); Lymphocytes % 21.8 % (21.2-54.2); Mean Corpuscular HGB Conc 33.5 GM/DL (32-36); Mean Corpuscular Volume 93.9 FL (87-102); Mean Platelet Volume 10.4 FL (9.6-12.0); Monocytes # 0.6 10*3/uL (0.11-0.8); Neutrophils % 66.2 % (38.7-73.9); Platelet Count 118 T/CUMM (130-400); Red Blood Count 2.45 MC/CUMM (3.8-5.5); Red Cell Distribution Width 14.2 % (9.3-17.3); White Blood Count 6.32 T/CUMM (4-12)
[2022-05-14] MEDS: AZITHROMYCIN INJ 500 MG in SODIUM CHLORIDE 0.9% 250 ML IV SCH ×2 (01:08→22:25)
[2022-05-14 01:21] LABS: Calcium 6.9 MG/DL (8.5-10.1); Osmolality,Calculated 300.4 MOS/KG (273-304); Potassium 4.2 MMOL/L (3.5-5.1)
[2022-05-14] MEDS ORDERED: SENNA 8.6 MG TABLET PO PRN (02:26)
[2022-05-14] MEDS: MORPHINE 2 MG/1 ML SYRINGE IV PRN ×2 (05:01→21:16)
[2022-05-14] MEDS ORDERED: FUROSEMIDE 40 MG/4 ML VIAL IV SCH (08:00)
[2022-05-14] MEDS: FUROSEMIDE 40 MG/4 ML VIAL IV SCH ×2 (09:00→16:08)
[2022-05-14] MEDS: DULoxetine 30 MG CAPSULE PO SCH (09:57)
[2022-05-14] MEDS: FERROUS SULFATE 325 MG TABLET PO SCH (09:57)
[2022-05-14] MEDS: MULTIVITAMIN (CENTRUM) TABLET PO SCH (09:57)
[2022-05-14] MEDS: PANTOPRAZOLE 40 MG TABLET PO SCH (09:57)
[2022-05-14] MEDS: CETIRIZINE 10 MG TABLET PO SCH (09:57)
[2022-05-14] MEDS ORDERED: GLUCAGON 1 MG VIAL IM PRN (11:58)
[2022-05-14] MEDS ORDERED: DEXTROSE 10% 250 ML BAG IV PRN (11:58)
[2022-05-14] MEDS ORDERED: BENZOCAINE 20% ORAL GEL 11.9 GM TUBE TOP PRN (16:40)
[2022-05-14] MEDS: HEPARIN 5,000 UNIT/1 ML VIAL SUBCUT SCH (21:15)
[2022-05-15] MEDS: ALBUTEROL/IPRATROPIUM 3 ML NEB RESP TX SCH ×4 (00:05→19:29)
[2022-05-15 05:07] LABS: Basophils % 0.6 % (0.0-0.8); Eosinophils # 0.3 10*3/uL (0.0-0.87); Eosinophils % 5.1 % (0.00-10.9); Hematocrit 25.9 VOL% (42.0-52.0); Hemoglobin 8.4 GM/DL (14.0-18.0); Immature Granulocytes % 0.6 %; Immature Granulocytes Absolute 0.03 #; Lymphocytes % 19.8 % (21.2-54.2); Mean Corpuscular HGB Conc 32.4 GM/DL (32-36); Mean Corpuscular Volume 94.2 FL (87-102); Mean Platelet Volume 10.4 FL (9.6-12.0); Monocytes # 0.5 10*3/uL (0.11-0.8); Monocytes % 8.8 % (1.7-12.7); Neutrophils % 65.1 % (38.7-73.9); Platelet Count 123 T/CUMM (130-400); Red Blood Count 2.75 MC/CUMM (3.8-5.5); Red Cell Distribution Width 13.8 % (9.3-17.3); White Blood Count 5.14 T/CUMM (4-12)
[2022-05-15 05:28] LABS: Calcium 6.6 MG/DL (8.5-10.1); Osmolality,Calculated 303.3 MOS/KG (273-304); Potassium 4.2 MMOL/L (3.5-5.1)
[2022-05-15 05:35] LABS: Risk Ratio 2.45; VLDL Cholesterol 19.4 MG/DL
[2022-05-15] MEDS: METOPROLOL SUCCINATE XL 100 MG TABLET PO SCH ×2 (09:55→21:27)
[2022-05-15] MEDS: FERROUS SULFATE 325 MG TABLET PO SCH (09:55)
[2022-05-15] MEDS: PANTOPRAZOLE 40 MG TABLET PO SCH (09:55)
[2022-05-15] MEDS: HEPARIN 5,000 UNIT/1 ML VIAL SUBCUT SCH ×2 (09:55→22:37)
[2022-05-15] MEDS: DULoxetine 30 MG CAPSULE PO SCH (09:55)
[2022-05-15] MEDS: CETIRIZINE 10 MG TABLET PO SCH (09:55)
[2022-05-15] MEDS: MULTIVITAMIN (CENTRUM) TABLET PO SCH (09:55)
[2022-05-15] MEDS: FUROSEMIDE 40 MG/4 ML VIAL IV SCH ×2 (09:56→17:17)
[2022-05-15] MEDS: INSULIN LISPRO 100 UNIT/ML SUBCUT SCH ×4 (09:56→22:37)
[2022-05-15] MEDS: AZITHROMYCIN 250 MG TABLET PO SCH (17:17)
[2022-05-15] MEDS: MORPHINE 2 MG/1 ML SYRINGE IV PRN (17:58)
[2022-05-15] MEDS: ATORVASTATIN 10 MG TABLET PO SCH (21:27)
[2022-05-15] MEDS: amLODIPine 2.5 MG TABLET PO SCH (21:27)
[2022-05-15] MEDS: cefTRIAXone 1,000 MG in SODIUM CHLORIDE 0.9% 100 ML IV SCH (21:28)
[2022-05-16] MEDS: ALBUTEROL/IPRATROPIUM 3 ML NEB RESP TX SCH ×2 (00:41→07:05)
[2022-05-16 06:20] LABS: Calcium 6.9 MG/DL (8.5-10.1); Osmolality,Calculated 295.8 MOS/KG (273-304)
[2022-05-16 08:08] LABS: Basophils % 0.6 % (0.0-0.8); Eosinophils # 0.2 10*3/uL (0.0-0.87); Eosinophils % 3.5 % (0.00-10.9); Hematocrit 26.5 VOL% (42.0-52.0); Hemoglobin 8.8 GM/DL (14.0-18.0); Immature Granulocytes % 0.6 %; Immature Granulocytes Absolute 0.03 #; Lymphocytes # 0.7 10*3/uL (1.4-4.0); Lymphocytes % 13.9 % (21.2-54.2); Mean Corpuscular HGB Conc 33.2 GM/DL (32-36); Mean Corpuscular Volume 92.3 FL (87-102); Mean Platelet Volume 11.2 FL (9.6-12.0); Monocytes # 0.3 10*3/uL (0.11-0.8); Monocytes % 6.5 % (1.7-12.7); Neutrophils % 74.9 % (38.7-73.9); Platelet Count 148 T/CUMM (130-400); Red Blood Count 2.87 MC/CUMM (3.8-5.5); Red Cell Distribution Width 13.6 % (9.3-17.3)
[2022-05-16] MEDS: AZITHROMYCIN 250 MG TABLET PO SCH (08:17)
[2022-05-16] MEDS: PANTOPRAZOLE 40 MG TABLET PO SCH (08:18)
[2022-05-16] MEDS: HEPARIN 5,000 UNIT/1 ML VIAL SUBCUT SCH (08:18)
[2022-05-16] MEDS: METOPROLOL SUCCINATE XL 100 MG TABLET PO SCH (08:18)
[2022-05-16] MEDS: MULTIVITAMIN (CENTRUM) TABLET PO SCH (08:18)
[2022-05-16] MEDS: CETIRIZINE 10 MG TABLET PO SCH (08:18)
[2022-05-16] MEDS: FERROUS SULFATE 325 MG TABLET PO SCH (08:18)
[2022-05-16] MEDS: INSULIN LISPRO 100 UNIT/ML SUBCUT SCH ×2 (08:20→12:07)
[2022-05-16] MEDS: DULoxetine 30 MG CAPSULE PO SCH (08:24)
[2022-05-16] MEDS: FUROSEMIDE 40 MG/4 ML VIAL IV SCH (09:30)
[2022-05-16 11:57] VITALS: BP 154/88
[2022-05-16] MEDS ORDERED: hydrALAZINE 25 MG TABLET PO SCH (15:00)
[2022-05-16] MEDS ORDERED: FUROSEMIDE 80 MG TABLET PO SCH (16:00)
== END 2022-05-16 14:15 | disposition home or self-care (01) | DRG 469 ==
LOC: EDUNIT# → EDBD → N.ED 15:23 → SUATTDRO 19:34 → N.2E 19:34
PROVIDERS: ADMIT Internal Medicine; ATTEND Internal Medicine